=== PATIENT | female | born 1960 | race Caucasian/White ===

== ENCOUNTER 2017-01-23 14:02 | Inpatient (IN) ==
[2017-01-23] MEDS ORDERED: DUONEB (A & A) INH ONE (14:06)
[2017-01-23] MEDS ORDERED: SOLU-MEDROL IV ONE (14:07)
--- NOTE | 2017-01-23 14:16 | PROVIDER DOCUMENTATION ---
HPI-Respiratory General <Little Dave Jr - Last Filed: 01/23/17 15:53> - General Source: patient, EMS - History of Present Illness-Resp Quality of Pain: reports: tightness Severity in ED: reports: mild Onset/Duration: reports: just prior to arrival Timing: reports: still present Exposure: reports: unknown cause Cough Quality/Degree: reports: no cough Episode Frequency: occasional episodes Current Respiratory Medication Therapy: Initiated see nurses note Modifying Factors: improves with: nothing Associated Symptoms: reports: shortness of breath Similar Symptoms Previously?: Yes Recently seen or treated by another doctor?: Yes <Lanette Alonzo - Last Filed: 01/23/17 16:33> - General Stated Complaint: sob Time Seen by Provider: 01/23/17 14:05 Allergies/Adverse Reactions: Patient Allergies Allergy/AdvReac Type Severity Reaction Status Date / Time amoxicillin trihydrate * Allergy Severe ANAPHYLAXIS Verified 01/23/17 14:58 [From Augmentin] potassium clavulanate * Allergy Severe ANAPHYLAXIS Verified 01/23/17 14:58 [From Augmentin] Home Medications: Home Medication List Medication Instructions Recorded Confirmed Last Taken Type Furosemide [Lasix] 40 mg PO DAILY 03/18/15 01/22/17 11/27/16 17:00 History Metoprolol Succinate E.r. [Toprol 25 mg PO BID #60 tablet 04/08/15 01/22/17 17:00 Rx Xl] Hydralazine [Apresoline] 50 mg PO TID PRN 04/18/15 01/22/17 11/27/16 17:00 History Metoclopramide HCl [Reglan] 2.5 mg PO AC + HS 04/18/15 01/22/17 11/27/16 17:00 History Amlodipine [Norvasc] 10 mg PO DAILY #0 tablet 02/02/16 01/22/17 11/27/16 17:00 Rx Clonidine [Catapres] 0.1 mg PO TID #0 tablet 02/02/16 01/22/17 11/27/16 17:00 Rx Calcium Carbonate Chew [Tums] 1,000 mg PO PC + HS PRN PRN #0 05/30/16 01/22/17 11/27/16 16:00 Rx tab.chew Folic Acid/B Cplx/C/Selen/Zinc 1 each PO DAILY 07/25/16 01/22/17 11/27/16 17:00 History [Dialyvite 3,000 Tablet] Albuterol 2.5MG/Ipratrop 0.5MG 3 ml INH RTQ4H #0 neb 11/16/16 01/22/17 Unknown Rx [Duoneb (A & A)] Mirtazapine [Remeron] 15 mg PO QHS #0 11/16/16 01/22/17 11/27/16 17:00 Rx Levofloxacin [Levaquin] 250 mg PO EVERY OTHER DAY #5 tablet 01/22/17 Unknown Rx Prednisone 20 mg PO BID #10 tablet 01/22/17 Unknown Rx - History of Present Illness-Resp Nature of Presenting Problem: Pt is 56 y/o F presents to the ED with respiratory distress. EMS states Pt was in respiratory distress on arrival. EMS states Pt was discharged from the hospital yesterday. Pt states she is a smoker and she wears 3L of oxygen at home at all times. (Lanette Alonzo) Review of Systems - Adult - REVIEW OF SYSTEMS - ADULT Constitutional: denies: chills, fever Eyes: denies: blurred vision, double vision Ears, Nose, Mouth & Throat: denies: ear pain, nose pain, throat pain Cardiovascular: denies: chest pain, heart murmur, irregular heart rate Respiratory: reports: shortness of breath. denies: cough, wheezing Gastrointestinal: denies: abdominal pain, diarrhea, nausea, vomiting Genitourinary: denies: dysuria, hematuria Musculoskeletal: denies: bone pain, joint pain, neck pain Integumentary: denies: hives, itching Neurological: denies: dizziness/vertigo, headache/migraines Psychiatric: reports: no symptoms reported Endocrine: reports: no symptoms reported Hematologic/Lymphatic: reports: no symptoms reported Allergic/Immunologic: reports: no symptoms reported All Other Systems: Reviewed and Negative <Lanette Alonzo - Last Filed: 01/23/17 16:33> Past History - Adult - PAST MEDICAL HISTORY-ADULT Review of Records: reports: Nursing Assessment Review, Medications Reviewed, Social history reviewed & non-contributory. Major Childhood Illnesses: reports: denies history Cardiovascular: reports: CHF, HTN Respiratory: reports: COPD Gastrointestinal: reports: other (gastroparesis) Obstetrical/Gynecological: reports: denies history Genitourinary: reports: dialysis, ESRD, kidney disease Musculoskeletal: reports: denies history Neurological: reports: denies history Psychiatric: reports: anxiety Endocrine/Immune: reports: denies history Other Conditions: reports: denies history - PRIOR SURGERIES/PROCEDURES Surgical/Procedure History: reports: cholecystectomy, indwelling device, other ( J tube placement, fistula to the left arm/dvt) - PRIOR HOSPITALIZATIONS Prior Hospitalizations: reports: for similar symptoms - IMMUNIZATION STATUS Childhood Immunizations: See Nurse Assessment Flu Vaccine: See Nurse Assessment - FAMILY HISTORY Family History: reviewed, not pertinent - SOCIAL HISTORY Smoking: cigarettes, less than 1 pack/day Provider spent 3-5 mins advising pt. on dangers of tobacco.: Discussed manners to quit use, and f/u contacts for add'l counseling. Substance Use: denies Living Situation: family <Lanette Alonzo - Last Filed: 01/23/17 16:33> Physical Exam-General - CONSTITUTIONAL General Appearance: alert, severe distress, thin. negative: appears well (ill in appearance) - EYES Eyes: PERRL/EOMI, pink conjunctivae. negative: sclera injected, scleral icterus - HEAD, EARS, NOSE, MOUTH & THROAT HENMT: normocephalic/atraumatic, other (dry mucous membranes and poor dentition) - NECK Neck: non-tender, supple. negative: tender lateral - RESPIRATORY Respiratory: chest non-tender, decreased breath sounds, accessory muscle use, wheezing, prolonged expiration, increased rate. negative: crackles, rales, rhonchi - CARDIOVASCULAR Cardiovascular: no murmur, tachycardia. negative: irregularly irregular - CHEST (BREASTS) Chest/Breast: no tenderness - GASTROINTESTINAL (ABDOMEN) Abdominal Exam: normal bowel sounds, soft. negative: distended, guarding, rigid , rebound, tenderness - GENITOURINARY Female Genitalia/Pelvic Exam: deferred Rectal Exam: deferred - LYMPHATIC Lymphatic: no adenopathy - MUSCULOSKELETAL Back Exam: normal inspection, no vertebral tenderness. negative: muscle spasm Extremity: negative: deformity, erythema - SKIN Integumentary: negative: swelling, tenderness - NEUROLOGIC Neurologic: grossly normal. negative: facial droop, focal weakness, motor weakness, sensory deficit - PSYCHIATRIC Psych/Mental Status: anxious, disheveled <Lnaette Alonzo - Last Filed: 01/23/17 16:33> Progress - CONSULTS/PCP/HOSPITALIST Notification #1 *Consult/PCP/Hospitalist*: Dr. Humphrey Time Discussed: 15:53 Consult Disposition: Admit (will see lilly. Start antibiotics) <Little Dave Jr - Last Filed: 01/23/17 15:53> - EKG 1 Time of EKG reading by physician:: 14:13 EKG Read and Signed by:: Little Dave Jr EKG Interpretation (*Must complete 3 of following elements*): Abnormal (ST & T wave abnormality, consider lateral ischemia) Rate: 131 Rhythm: sinus tachycardia Comments: voltage criteria for left ventricular hypertrophy - XRAY 1 XRAY: Bilateral XRAY Study: Chest Impression: Abnormal XRAY Interpretation: presistent bilateral infiltrates with no interval improvement <Lanette Alonzo - Last Filed: 01/23/17 16:33> - PLAN OF CARE/RESULTS Progress/Plan/Lab Results: Orders Category Date Time Status Cardiac Monitoring DIRECTED Care 01/23/17 14:06 Active Saline Loc NOW Care 01/23/17 14:06 Active CHEST-PORTABLE [RAD] Stat Exams 01/23/17 14:06 Ordered CBC WITH ELECTRONIC DIFF [HEME] Stat Lab 01/23/17 14:06 Uncollected CK PROFILE [SP CHEM] Stat Lab 01/23/17 14:06 Uncollected COMPREHENSIVE METABOLIC PANEL [CHEM] Stat Lab 01/23/17 14:06 Uncollected MAGNESIUM [CHEM] Stat Lab 01/23/17 14:06 Uncollected PRO B-NATRIURETIC PEPTIDE Stat Lab 01/23/17 14:06 Uncollected PROTIME WITH INR [COAG] Stat Lab 01/23/17 14:06 Uncollected PTT [COAG] Stat Lab 01/23/17 14:06 Uncollected TROPONIN T Stat Lab 01/23/17 14:06 Uncollected Albuterol 2.5MG/Ipratrop 0.5MG [Duoneb (A & A)] Med 01/23/17 14:06 Discontinued 3 ml INH NOW ONE Methylprednisolone Sod Succ [Solu-Medrol] Med 01/23/17 14:07 Discontinued 125 mg IV NOW ONE Aerosol Treatments Routine Oth 01/23/17 14:07 Active Aerosol Treatments Stat Oth 01/23/17 14:07 Active EKG [EKG] Stat Ther 01/23/17 14:06 Ordered Vital Signs - 24 hr 01/23/17 14:22 Pulse Rate 128 H Respiratory 37 H Rate Blood Pressure 174/90 O2 Sat by Pulse 90 L Oximetry Laboratory Tests 01/23/17 01/23/17 01/23/17 14:12 14:12 14:12 WBC 11.10 H RBC 3.41 L Hgb 10.7 L Hct 34.0 L MCV 99.7 H MCH 31.4 H MCHC 31.5 L RDW Std Deviation 14.6 H Plt Count 140 MPV 10.6 H Immature Gran % (Auto) 0.2 Neut % (Auto) 91.8 H Lymph % (Auto) 4.1 L Woodruff % (Auto) 3.7 Eos % (Auto) 0.0 Baso % (Auto) 0.2 Immature Gran # (Auto) 0.02 Neut # (Auto) 10.20 H Lymph # (Auto) 0.45 L Woodruff # (Auto) 0.41 Eos # (Auto) 0.00 Baso # (Auto) 0.02 PT 10.7 INR 1.01 PTT (Actin FS) 32.1 Sodium 136 Potassium 3.7 Chloride 91 L Carbon Dioxide 26 Anion Gap 19 BUN 30 H D Creatinine 5.2 H Estimated GFR/1.73 m2 9 BUN/Creatinine Ratio 6 Glucose 99 Calculated Osmolality 278 Calcium 9.2 Magnesium 2.0 Total Bilirubin 0.35 AST 38 H ALT 13 Alkaline Phosphatase 67 Creatine Kinase 81 Troponin T Total Protein 6.2 L Albumin 3.3 L Globulin 2.9 Albumin/Globulin Ratio 1.1 01/23/17 14:12 WBC RBC Hgb Hct MCV MCH MCHC RDW Std Deviation Plt Count MPV Immature Gran % (Auto) Neut % (Auto) Lymph % (Auto) Woodruff % (Auto) Eos % (Auto) Baso % (Auto) Immature Gran # (Auto) Neut # (Auto) Lymph # (Auto) Woodruff # (Auto) Eos # (Auto) Baso # (Auto) PT INR PTT (Actin FS) Sodium Potassium Chloride Carbon Dioxide Anion Gap BUN Creatinine Estimated GFR/1.73 m2 BUN/Creatinine Ratio Glucose Calculated Osmolality Calcium Magnesium Total Bilirubin AST ALT Alkaline Phosphatase Creatine Kinase Troponin T 0.205 H Total Protein Albumin Globulin Albumin/Globulin Ratio (Lanette Alonzo) Departure - Departure Time of Disposition Order: 15:54 Certified Medical Emergency: Emergent <Little Dave Jr - Last Filed: 01/23/17 15:53> <Lanette Alonzo - Last Filed: 01/23/17 16:33> - Departure DIAGNOSIS: Community acquired bacterial pneumonia, COPD exacerbation, Tobacco abuse Chronic renal failure Qualifiers: Chronic kidney disease stage: stage 5 Qualified Code(s): N18.5 - Chronic kidney disease, stage 5 Sepsis Qualifiers: Sepsis type: sepsis due to unspecified organism Qualified Code(s): A41.9 - Sepsis, unspecified organism Disposition: ADMITTED INPATIENT 09 Condition: Fair Referrals: Ammon Guevara MD [Primary Care Provider] - Attestation - Scribe Verification/Attestation Scribe:: Lanette Alonzo Acting as Scribe for:: Little Dave Jr Scribe documention review:: This chart was documented by a scribe and accurately reflects the service the provider performed and the decisions made by the provider. <Lanette Alonzo - Last Filed: 01/23/17 16:33> Physician Attestation
[2017-01-23 14:45] LABS: ALLEN TEST YES; BE 5.3 mmoll (-3.0-3.0); BLOOD TYPE ARTERIAL; DRAW SITE R RADIAL; METHB 1.4 % (0.0-1.5); O2(CT) 13.1 mL/dL (15.0-23.0); PCO2(98.6) 38 mmHg (35-45); PO2(98.6) 50 mmHg (60-100); SAMPLE BLOOD; SAO2 87.4 % (95.0-100.0); THB 11.1 g/dL (11.5-17.4); pH(98.6) 7.49 (7.35-7.45)
--- NOTE | 2017-01-23 14:46 | Diag Imaging Result Document ---
PROCEDURE NAME: CHEST-PORTABLE - 01/23/2017 PORTABLE AP CHEST: COMPARISON: Compared to 01/22/2017. FINDINGS: The lungs are well expanded. The heart is not enlarged. Mild increased interstitial markings in the mid and lower right lung and the mid left lung. Likely atelectasis in the right costophrenic angle. No consolidation. IMPRESSION: Persistent bilateral infiltrates with no interval improvement. [facility]
[2017-01-23] MEDS ORDERED: LEVAQUIN 750 MG/D5W 150 ML IV ONE (14:52)
[2017-01-23 15:04] LABS: BASO% 0.2 % (0.0-0.8); HEMOGLOBIN 10.7 g/dL (12.0-16.0); IMM GRAN# 0.02 X1000 (0.0-0.04); IMM GRAN% 0.2 % (0.0-0.5); LYMPH# 0.45 X1000 (1.2-3.4); LYMPH% 4.1 % (20.5-51.1); MANUAL DIFF NEEDED? NO; MCH 31.4 PG (27-31); MCHC 31.5 g/dL (33-37); MCV 99.7 FL (81-99); MONO# 0.41 X1000 (0.11-0.59); MONO% 3.7 % (1.7-9.3); MPV 10.6 FL (7.4-10.4); NEUT% 91.8 % (42.2-75.2); PLT 140 X1000 (130-400); RBC 3.41 XMIL (4.2-5.4)
[2017-01-23 15:21] LABS: INR 1.01; PROTIME 10.7 Seconds (9.2-11.7); PTT 32.1 Seconds (22.0-36.0)
[2017-01-23 15:36] LABS: ALBUMIN 3.3 g/dL (3.5-5.0); CALCIUM 9.2 mg/dL (8.8-10.2); POTASSIUM 3.7 mmol/L (3.5-5.1); TOTAL BILIRUBIN 0.35 mg/dL (0.20-1.00); TOTAL PROTEIN 6.2 g/dL (6.3-8.3)
[2017-01-23] MEDS ORDERED: MORPHINE IV ONE (16:13)
[2017-01-23] MEDS ORDERED: PHENERGAN IV ONE (16:15)
[2017-01-23] MEDS ORDERED: SODIUM CHLORIDE 0.9% INJ ONE (16:15)
[2017-01-23 16:25] LABS: MODALITY BI PAP
[2017-01-23] MEDS ORDERED: DUONEB (A & A) INH PRN (16:25)
[2017-01-23] MEDS ORDERED: NS 1,000 ML IV SCH (16:30)
[2017-01-23] MEDS ORDERED: APRESOLINE PO PRN (18:42)
[2017-01-23] MEDS: SOLU-MEDROL IV SCH (18:52)
[2017-01-23] MEDS: ROCEPHIN 1 GM/NS 50 ML IV SCH (18:52)
--- NOTE | 2017-01-23 19:25 | HISTORY AND PHYSICAL ---
HISTORY OF PRESENT ILLNESS: Ms. Hobson is a 56-year-old white female a patient with COPD who came to the emergency room yesterday and was found to have pneumonia. It was decided that she would be treated as an outpatient. She was sent home with antibiotics, however, she got worse and came back. She was admitted today as things were getting worse. She has bilateral pneumonia. She is a patient of Dr. Guevara. She has COPD for several years. She used to smoke heavy, however, she has slowed down to very few cigarettes per day now. Besides COPD she does have significant hypertension. PAST MEDICAL HISTORY: Cholecystectomy. She has an arteriovenous shunt in the left upper arm for dialysis for her end-stage renal disease. MEDICATIONS: DuoNebs at home, amlodipine 10 mg daily, calcium carbonate, clonidine, folic acid, furosemide, hydralazine 50 mg 3 times a day, levofloxacin was prescribed yesterday, metoclopramide 2.5 mg t.i.d. before meals and at bedtime, metoprolol, mirtazapine and prednisone. REVIEW OF SYSTEMS: Other than shortness of breath and cough with expectoration it is noncontributory. PHYSICAL EXAMINATION: VITAL SIGNS: Temperature normal, pulse 107 per minute, respiratory rate 17 per minute, blood pressure 133/77. She weighs 90 pounds. HEENT: Head normocephalic. PERRLA. Fundus examination could not be done. NECK: Supple. JVP normal. ENT examination unremarkable. There is no evidence of lymphadenopathy or thyroid enlargement. EXTREMITIES: No pedal edema, calf tenderness, anemia, cyanosis or clubbing. She has a shunt in the left upper arm which sounds like it is patent. BREAST EXAMINATION: Normal. CHEST: Normal on inspection. LUNGS: Reveal bilateral basilar rales with expiratory wheezing. PMI in the normal position. HEART: Sounds normal. No murmur, gallop or rub noted. ABDOMEN: Nondistended. Reveals scars from previous surgery. No guarding, rigidity, free fluid, masses, or organomegaly. Bowel sounds normal. RECTAL EXAMINATION: Deferred. CENTRAL NERVOUS SYSTEM: Higher functions normal. Cranial nerves normal. Motor and sensory system examination unremarkable. Deep tendon reflexes normal. Plantars downgoing. SKULL AND SPINE EXAMINATION: Normal for age. No cerebellar signs or signs of meningeal irritation. LOCOMOTOR EXAMINATION: Unremarkable. SKIN EXAMINATION: Unremarkable. LABORATORY: CBC shows leukocytosis with white count of 11.10. ABGs are satisfactory except for hypoxia, PO2 was only 50% with 100% FiO2. We will repeat the blood gases tomorrow morning. BUN was 30, creatinine was 5.2, proBNP was more than 35,000. Troponin was somewhat high at 0.205. CLINICAL IMPRESSION: Chronic obstructive pulmonary disease with bilateral pneumonia as noted on the chest x-ray. PLAN: 1. Continue antibiotics and steroids. 2. Nephrology consultation. 3. Obtain echocardiogram.
[2017-01-23] MEDS: DUONEB (A & A) INH SCH ×2 (19:40→23:34)
--- NOTE | 2017-01-23 20:15 | CONSULTATION ---
DATE OF CONSULTATION: 01/23/2017 REASON FOR CONSULTATION: Help with management. HISTORY OF PRESENT ILLNESS: Ms. Hobson is a 56-year-old white female with COPD and end-stage kidney disease. She requires home oxygen for management of her COPD and is hospitalized rather frequently for this diagnosis. She presented to dialysis yesterday with increasing shortness of breath, coughing, sputum, decreased O2 saturation. She was encouraged to come to the emergency room which she did, but she would not accept admission after her evaluation and she subsequently went home. She returned today with worsening symptoms. Her O2 saturation initially was very low and she had obvious respiratory distress. She was treated with BiPAP initially and then transitioned back to a closed face mask. Again, she uses oxygen and home, 3 L at all time. Currently her shortness of breath is moderately improved. She is still coughing and still wheezing. PAST MEDICAL HISTORY: 1. End-stage kidney disease. 2. Hypertension. 3. COPD, O2 dependent. HOME MEDICATIONS: Prednisone, levofloxacin, mirtazapine, albuterol, ipratropium, multivitamin, Tums, clonidine, amlodipine, metoclopramide, hydralazine, metoprolol, furosemide. ALLERGIES: Amoxicillin, Augmentin. SOCIAL HISTORY: She is and lives with her . She continues to smoke. REVIEW OF SYSTEMS: Otherwise noncontributory. PHYSICAL EXAMINATION: Vital Signs: Blood pressure 133/77, heart rate 107, respirations 17, afebrile. General: She is a frail, petite woman sitting up in bed with increased work of breathing on a closed face mask. Skin: Warm and dry. Conjunctivae are pink. Pupils are equal. Oropharynx is dry. Neck: Neck veins are distended. Heart: Regular and tachycardic. Lungs: Have equal breath sounds with decreased air movement and wheezes bilaterally, a few crackles. Abdomen: Soft, nontender. Bowel sounds are present. Extremities: Have trace edema. No clubbing or cyanosis. Neurologic: Grossly nonfocal. LABORATORY DATA: Sodium 136, potassium 3.7, chloride 91, bicarbonate 26, BUN 30, creatinine 5.2, hemoglobin 10.7. IMPRESSION: 1. Chronic obstructive pulmonary disease exacerbation with possible pneumonia. She is being treated with empiric therapy for pneumonia with levofloxacin, ceftriaxone. These drugs are dosed appropriately for her renal function. She is also receiving inhaled ipratropium and albuterol as well as intravenous methylprednisolone and supplemental oxygen. 2. End-stage kidney disease. She does not appear volume overloaded. I will stop her IV fluids. She will have her routine hemodialysis in the morning. 3. Electrolytes are in target. 4. Acid-base is in target. 5. Anemia in target.
[2017-01-23] MEDS: REMERON PO SCH (20:41)
[2017-01-23] MEDS: REGLAN PO SCH (20:41)
[2017-01-23] MEDS: TOPROL XL PO SCH (20:41)
[2017-01-23] MEDS ORDERED: DUONEB (A & A) INH SCH (22:00)
[2017-01-24] MEDS ORDERED: LASIX IV ONE (00:37)
[2017-01-24] MEDS: SOLU-MEDROL IV SCH ×3 (03:13→18:02)
[2017-01-24] MEDS: DUONEB (A & A) INH SCH ×6 (03:26→23:01)
--- NOTE | 2017-01-24 05:45 | EKG Report ---
Test Performed on : 01/23/2017 2:13:46 PM Test Reason : Chest Pain Blood Pressure : / mmHG Vent. Rate : 131 BPM Atrial Rate : 131 BPM P-R Int : 130 ms QRS Dur : 080 ms QT Int : 324 ms P-R-T Axes : 048 026 098 degrees QTc Int : 478 ms Sinus tachycardia. Voltage criteria for left ventricular hypertrophy ST & T wave abnormality, consider lateral ischemia Abnormal ECG When compared with ECG of 12-NOV-2016 14:03, No significant change was found Confirmed by Musa Tinsley MD ([id number]) on 01/25/2017 8:46:22 PM
--- NOTE | 2017-01-24 06:05 | EKG Report ---
Test Performed on : 01/24/2017 00:12:16 AM Test Reason : No order in [facility] Blood Pressure : / mmHG Vent. Rate : 097 BPM Atrial Rate : 097 BPM P-R Int : 132 ms QRS Dur : 082 ms QT Int : 404 ms P-R-T Axes : 049 037 112 degrees QTc Int : 513 ms Normal sinus rhythm. Possible Left atrial enlargement T wave abnormality, consider lateral ischemia Nonspecific T wave abnormality Anterior leads Prolonged QT Abnormal ECG When compared with ECG of 23-JAN-2017 14:13, (Unconfirmed) T wave inversion now evident in Anterior leads Confirmed by Musa Tinsley MD ([id number]) on 01/25/2017 8:49:21 PM
[2017-01-24 06:06] LABS: ALLEN TEST YES; BE 3.7 mmoll (-3.0-3.0); BLOOD TYPE ARTERIAL; DRAW SITE R RADIAL; METHB 1.4 % (0.0-1.5); O2(CT) 13.7 mL/dL (15.0-23.0); PCO2(98.6) 47 mmHg (35-45); PO2(98.6) 158 mmHg (60-100); SAMPLE BLOOD; SAO2 99.2 % (95.0-100.0); THB 9.8 g/dL (11.5-17.4)
[2017-01-24 06:07] LABS: MODALITY NRB
[2017-01-24] MEDS: LOVENOX SUBQ SCH (06:19)
[2017-01-24] MEDS: REGLAN PO SCH ×5 (06:19→21:30)
[2017-01-24] MEDS ORDERED: NS 2,000 ML MISC PRN (06:30)
[2017-01-24] MEDS ORDERED: HEPARIN IV PRN (06:30)
[2017-01-24] MEDS ORDERED: TIGHT: 0.2 ML/HR MISC PRN (06:30)
--- NOTE | 2017-01-24 09:57 | PROGRESS NOTE ---
DATE: 01/24/2017 SUBJECTIVE: Ms. Hobson was admitted last night with bilateral pneumonia and severe chronic obstructive pulmonary disease. She has endstage renal disease. Dr. Mustafa saw her last night. Her ABGs showed significant improvement, especially in pO2. We will try to cut down on her oxygen today overall condition is stable. We will continue the current management on her. -2
[2017-01-24] MEDS ORDERED: HEPARIN ONE (10:55)
[2017-01-24] MEDS ORDERED: NS 2,000 ML ONE (10:55)
--- NOTE | 2017-01-24 10:58 | PROGRESS NOTE ---
DATE: 01/24/2017 SUBJECTIVE: She is feeling better today. She is able lay back in the bed and rest. She is still coughing, but this is improved. Less sputum, less shortness of breath. OBJECTIVE: Vital Signs: Blood pressure 153/73, heart rate 97, respiration 18, afebrile. General Appearance: Thin, chronically ill woman, in no acute distress. Skin: Warm and dry. Conjunctivae are pink. Pupils are equal. Neck: Neck veins are not distended. Oropharynx is not examined. Heart: Regular without gallops or murmurs. Lungs: Have equal breath sounds with few wheezes. No crackles. Abdomen: Soft, nontender. Bowel sounds are present. Extremities: Have no edema, clubbing, or cyanosis. LABORATORY DATA: None today. IMPRESSION: 1. End-stage kidney disease: She will have her routine hemodialysis today. We will test her dry weight to eliminate volume is potential part of her clinical syndrome. 2. Electrolytes/acid base in target. 3. Anemia. In target.
--- NOTE | 2017-01-24 13:39 | ECHO REPORT ---
ORDER DATE: 01/23/2017 PROCEDURE: Echocardiogram. ECHOCARDIOGRAPHIC MEASUREMENTS: 1. Interventricular septum 1.5. 2. Left ventricular posterior wall 1.4. 3. Diastolic diameter 3.4. 4. Left atrium 3.5. 5. Aorta 2.8. INTERPRETATION: 1. Technically suboptimal study. Very poor acoustic window. 2. Pulmonic valve not well visualized. 3. Mitral valve was normal. 4. Tricuspid valve not well visualized. 5. Aortic valve leaflets mildly sclerosed, trileaflet. 6. A poor acoustic window. Left ventricular cavity size appears to be normal with an estimated ejection fraction of 45% to 50%; however, endocardium not well visualized in all views. Would recommend contrast echo or MUGA scan to accurately assess systolic function. 7. Doppler studies revealed peak velocity across the aortic valve 2.1 m/sec. There is left atrial enlargement. 8. There is mild mitral regurgitation. 9. Mild tricuspid regurgitation. Peak velocity across the tricuspid valve was 3.3 m/sec. 10. Pulmonary artery systolic pressure of 54 mmHg. 11. There is no pericardial effusion or obvious intracardiac mass or thrombus seen. 12. Mitral annular calcification was noted.
[2017-01-24] MEDS ORDERED: LEVAQUIN 500 MG/D5W 100 ML IV SCH (15:00)
[2017-01-24] MEDS: CATAPRES PO SCH ×3 (15:28→16:17)
[2017-01-24] MEDS: VITAMIN D PO SCH (15:29)
[2017-01-24] MEDS: TOPROL XL PO SCH ×2 (15:30→21:30)
[2017-01-24] MEDS: NORVASC PO SCH (15:30)
[2017-01-24] MEDS: LASIX IV SCH (15:30)
[2017-01-24] MEDS: LEVAQUIN 500 MG/D5W 100 ML IV SCH (15:31)
[2017-01-24] MEDS: ROCEPHIN 1 GM/NS 50 ML IV SCH (18:01)
[2017-01-24] MEDS: REMERON PO SCH (21:31)
[2017-01-25] MEDS: SOLU-MEDROL IV SCH ×3 (03:09→18:15)
[2017-01-25] MEDS: DUONEB (A & A) INH SCH ×6 (03:45→22:51)
[2017-01-25] MEDS: REGLAN PO SCH ×4 (06:19→20:17)
[2017-01-25] MEDS: LOVENOX SUBQ SCH (06:19)
[2017-01-25] MEDS: TUMS PO PRN ×5 (06:39→22:30)
[2017-01-25] MEDS ORDERED: LEVAQUIN PO SCH (09:00)
[2017-01-25] MEDS: TOPROL XL PO SCH ×2 (09:50→20:17)
[2017-01-25] MEDS: CATAPRES PO SCH ×3 (09:50→17:28)
[2017-01-25] MEDS: LASIX IV SCH (09:50)
[2017-01-25] MEDS: VITAMIN D PO SCH (09:50)
[2017-01-25] MEDS: NORVASC PO SCH (09:51)
--- NOTE | 2017-01-25 11:14 | PROGRESS NOTE ---
DATE: 01/25/2017 SUBJECTIVE: Ms. Hobson is recovering from pneumonia. She had blood cultures positive for Serratia, sensitive to Levaquin which was started yesterday. She is also getting IV Rocephin. She says she is feeling better. Overall condition is unchanged.
--- NOTE | 2017-01-25 11:26 | PROGRESS NOTE ---
DATE: 01/25/2017 SUBJECTIVE: She still has shortness of breath, but she has her oxygen off while eating breakfast. No other new complaints. OBJECTIVE: Vital Signs: Blood pressure 142/82, heart rate 112, respirations 20, afebrile. Intake 800 mL; output 3.1 L. General: On physical exam, frail chronically ill woman in no distress. Skin: Warm and dry. Eyes: Conjunctivae are pink. Neck: Neck veins are not distended. Heart: Regular with a gallop. Lungs: Have equal breath sounds with few wheezes. No crackles. Abdomen: Soft and nontender. Bowel sounds are present. Extremities: Have no edema, clubbing, or cyanosis. LABORATORY DATA: None today. Blood cultures positive with Serratia marcescens, which she is sensitive to cephalosporins and quinolones. IMPRESSION: 1. End-stage kidney disease. She will be due for her next scheduled dialysis treatment tomorrow. 2. Bacteremia with Serratia marcescens. She had a femoral catheter that was removed on Saturday of this week. No other obvious sources of bacteremia. Her organism is sensitive to cephalosporins, which we can continue to dose ceftazidime 2 g every 48 hours at the outpatient clinic when she is otherwise ready for discharge.
[2017-01-25] MEDS: ROCEPHIN 1 GM/NS 50 ML IV SCH (18:15)
[2017-01-25] MEDS: REMERON PO SCH (20:17)
[2017-01-26] MEDS: DUONEB (A & A) INH SCH ×6 (03:23→22:54)
[2017-01-26] MEDS: SOLU-MEDROL IV SCH ×3 (03:55→20:41)
[2017-01-26] MEDS: REGLAN PO SCH ×4 (06:11→20:41)
[2017-01-26] MEDS: LOVENOX SUBQ SCH (06:11)
[2017-01-26] MEDS ORDERED: TIGHT: 0.2 ML/HR MISC PRN (07:29)
[2017-01-26] MEDS ORDERED: NS 2,000 ML MISC PRN (07:29)
[2017-01-26] MEDS ORDERED: HEPARIN IV PRN (07:29)
[2017-01-26 08:49] LABS: HEMATOCRIT 29.7 % (37.0-47.0); HEMOGLOBIN 9.4 g/dL (12.0-16.0); MCHC 31.6 g/dL (33-37); MPV 10.3 FL (7.4-10.4); RBC 3.03 XMIL (4.2-5.4)
[2017-01-26] MEDS: LEVAQUIN 500 MG/D5W 100 ML IV SCH (08:56)
[2017-01-26] MEDS: LASIX IV SCH (08:56)
[2017-01-26] MEDS: TUMS PO PRN ×3 (08:56→17:11)
[2017-01-26 09:22] LABS: ALBUMIN 3.2 g/dL (3.5-5.0); CALCIUM 10.2 mg/dL (8.8-10.2); POTASSIUM 4.2 mmol/L (3.5-5.1)
[2017-01-26] MEDS ORDERED: NS 2,000 ML ONE (09:55)
[2017-01-26] MEDS ORDERED: HEPARIN ONE (09:55)
[2017-01-26] MEDS: CATAPRES PO SCH ×3 (10:49→17:11)
[2017-01-26] MEDS: TOPROL XL PO SCH ×2 (10:49→20:40)
--- NOTE | 2017-01-26 13:29 | PROGRESS NOTE ---
DATE: 01/26/2017 SUBJECTIVE: Ms. Hobson has gone for dialysis today. She is recovering from pneumonia. She has septicemia with positive blood cultures showing Serratia marcescens. She is on IV Levaquin, which should be helping her significantly. OBJECTIVE: Vital Signs: The vital signs are stable. She is afebrile. -57
[2017-01-26] MEDS: NORVASC PO SCH (15:38)
[2017-01-26] MEDS: VITAMIN D PO SCH (15:38)
[2017-01-26] MEDS: REMERON PO SCH (20:40)
[2017-01-26] MEDS: ROCEPHIN 1 GM/NS 50 ML IV SCH (20:40)
[2017-01-27] MEDS: SOLU-MEDROL IV SCH ×3 (03:03→20:37)
[2017-01-27] MEDS: DUONEB (A & A) INH SCH ×6 (03:27→22:44)
[2017-01-27] MEDS: LOVENOX SUBQ SCH (06:04)
[2017-01-27] MEDS: REGLAN PO SCH ×4 (06:04→20:34)
[2017-01-27] MEDS: NORVASC PO SCH (08:26)
[2017-01-27] MEDS: TUMS PO PRN ×2 (08:26→22:01)
[2017-01-27] MEDS: VITAMIN D PO SCH (08:26)
[2017-01-27] MEDS: CATAPRES PO SCH ×3 (08:27→16:26)
[2017-01-27] MEDS: LASIX IV SCH (08:27)
[2017-01-27] MEDS: TOPROL XL PO SCH ×2 (08:27→20:33)
[2017-01-27] MEDS: KLONOPIN PO SCH (18:42)
[2017-01-27] MEDS: REMERON PO SCH (20:33)
[2017-01-27] MEDS: ROCEPHIN 1 GM/NS 50 ML IV SCH (20:37)
[2017-01-28] MEDS: TUMS PO PRN ×2 (01:45→16:19)
--- NOTE | 2017-01-28 03:05 | PROGRESS NOTE ---
DATE: 01/27/2017 Ms. Hobson is doing better. She has positive blood cultures with Serratia and has been on appropriate antibiotics. She is getting IV levofloxacin. She has renal failure and has been getting dialysis. Overall condition is unchanged. We are repeating her chest x-ray tomorrow. We will also check her basic blood work also. -8
[2017-01-28] MEDS: SOLU-MEDROL IV SCH ×3 (03:06→18:43)
[2017-01-28] MEDS: DUONEB (A & A) INH SCH ×5 (03:30→19:33)
--- NOTE | 2017-01-28 05:56 | EKG Report ---
Test Performed on : 01/28/2017 03:32:45 AM Test Reason : Chest Pain Blood Pressure : / mmHG Vent. Rate : 098 BPM Atrial Rate : 098 BPM P-R Int : 124 ms QRS Dur : 084 ms QT Int : 374 ms P-R-T Axes : 038 036 207 degrees QTc Int : 477 ms Normal sinus rhythm. ST & T wave abnormality, consider inferior ischemia Prolonged QT Abnormal ECG When compared with ECG of 24-JAN-2017 00:12, T wave inversion now evident in Inferior leads T wave inversion no longer evident in Anterior leads Confirmed by Musa Tinsley MD ([id number]) on 01/29/2017 9:34:56 PM
[2017-01-28] MEDS: LOVENOX SUBQ SCH (06:01)
[2017-01-28] MEDS: REGLAN PO SCH ×4 (06:01→20:54)
[2017-01-28 07:08] LABS: BASO% 0.2 % (0.0-0.8); EOS# 0.01 X1000 (0.0-0.7); EOS% 0.1 % (0.0-10.0); HEMATOCRIT 25.6 % (37.0-47.0); HEMOGLOBIN 7.9 g/dL (12.0-16.0); IMM GRAN# 0.35 X1000 (0.0-0.04); IMM GRAN% 2.8 % (0.0-0.5); LYMPH# 0.53 X1000 (1.2-3.4); LYMPH% 4.2 % (20.5-51.1); MANUAL DIFF NEEDED? YES; MCH 30.4 PG (27-31); MCHC 30.9 g/dL (33-37); MCV 98.5 FL (81-99); MONO# 0.41 X1000 (0.11-0.59); MONO% 3.3 % (1.7-9.3); MPV 10.1 FL (7.4-10.4); NEUT% 89.4 % (42.2-75.2); PLT 242 X1000 (130-400)
[2017-01-28 07:11] LABS: CALCIUM 9.8 mg/dL (8.8-10.2); POTASSIUM 4.5 mmol/L (3.5-5.1)
--- NOTE | 2017-01-28 07:11 | PROGRESS NOTE ---
DATE: 01/28/2017 SUBJECTIVELY: Ms. Hobson is doing fair. The patient does feel weak. Does have cough, shortness of breath with minimal exertion. She denied any high-grade fever or chills. The patient did have vague chest pain last night. The patient admitted with chest congestion, cough, shortness of breath. Found to have COPD exacerbation and bilateral pneumonia. The patient is on IV Levaquin. Patient found to have blood culture positive. She has known case of end-stage renal disease, on hemodialysis. The patient does have epigastric discomfort and nausea. OBJECTIVE: Vital signs: Noted. Neck: Supple. No JVD. Lungs: Bibasilar crepitations, occasional wheezing. CVS: S1 and S2 heard, 2/6 systolic murmur at the apex. Abdomen: Soft, mild epigastric tenderness. No guarding or rigidity. Extremities: No cyanosis, clubbing. Some disuse atrophy. PAN SHAKER: Alert, awake able to move all 4 limbs. DIAGNOSTIC STUDIES: The patient had echocardiogram done which did reveal mild mitral regurgitation. Mild tricuspid regurgitation. No pericardial effusion. Annular mitral calcification. ASSESSMENT/CONSIDERATION: The patient's problems includes sepsis. Her blood culture grew Serratia, which is sensitive to Levaquin. Her other problems include: 1. Bronchopneumonia. 2. Chronic obstructive pulmonary disease exacerbation. 3. End-stage renal disease. 4. The patient does have chronic abdominal pain. The patient is not sure about her last upper GI endoscope. PLAN: Considering her chronic problem, I am going to consider getting a GI evaluation. Continue rest of the treatment. Overall plan discussed with the patient. She is in agreement.
[2017-01-28] MEDS: TOPROL XL PO SCH ×2 (10:37→20:55)
[2017-01-28] MEDS: CATAPRES PO SCH ×3 (10:37→20:55)
[2017-01-28] MEDS: LASIX IV SCH (10:37)
[2017-01-28] MEDS: VITAMIN D PO SCH (10:37)
[2017-01-28] MEDS: NORVASC PO SCH (10:37)
[2017-01-28] MEDS: KLONOPIN PO SCH (10:37)
[2017-01-28] MEDS: LEVAQUIN 500 MG/D5W 100 ML IV SCH (10:38)
--- NOTE | 2017-01-28 10:47 | Diag Imaging Result Document ---
PROCEDURE NAME: CHEST-2 VIEWS - 01/28/2017 CHEST X-RAY 2 VIEWS, 01/28/2017: COMPARISON: 01/23/2017. FINDINGS: There is improvement in the fine interstitial infiltrates, with more normal appearance of the pulmonary vascularity. No focal consolidation. No pneumothorax or pleural effusion. Heart size remains mildly enlarged. IMPRESSION: Significant improvement from prior.
--- NOTE | 2017-01-28 11:40 | PROGRESS NOTE ---
DATE: 01/28/2017 SUBJECTIVE: Patient currently resting in bed with eyes closed. She is drowsy. Awakes to verbal and tactile stimuli. No complaints this morning. OBJECTIVE: Vital Signs: Temperature 97.4 degrees, pulse 96, respiratory rate 18, blood pressure 147/69, intake 694 mL, output not measured. Physical Examination: General: This is a middle-aged female, resting in bed. She is resting with eyes closed. She is in no acute distress. HEENT: Normocephalic and atraumatic. Oral mucosa dry. Neck: Supple. No JVD. Cardiovascular: Regular rate and rhythm. She has a positive S4. Pulmonary: She has equal excursion. She is clear bilaterally. No increased work of breathing. Abdomen: Soft with positive bowel sounds. : Not inspected. She has minimal void with hemodialysis assist. Extremities: No clubbing, cyanosis, or edema. Integumentary: Skin is warm and dry. No rash or lesion. Lab Data: WBC of 12.5, hemoglobin 7.9. Sodium 134, potassium 4.9, CO2 26, BUN 73, creatinine 5.4, calcium 9.8. She did have an initial blood culture that come back positive for Serratia marcescens susceptible to everything except cefazolin. Her final blood cultures have been reported as negative. ASSESSMENT AND PLAN: 1. End-stage renal disease management. She has a Saturday, , Saturday schedule patient. We will plan to resume her routine dialysis tomorrow. 2. Bacteremia with Serratia marcescens. Her femoral catheter was removed prior to hospitalization. She is on appropriately dosed antibiotics. 3. Bronchopneumonia. Followed by primary. Appropriate treatment. 4. Chronic abdominal pain. The patient will be receiving a gastroenterology consult per primary. Seen, data reviewed, discussed with Alexandria Singh on 01/28/16. I agree with the above assessment and plan of care. rg Dictated by MONICA Walker for Onesimo Mustafa MD [facility]uthie
[2017-01-28] MEDS: ROCEPHIN 1 GM/NS 50 ML IV SCH (20:54)
[2017-01-28] MEDS: REMERON PO SCH (20:54)
--- NOTE | 2017-01-28 21:57 | CONSULTATION ---
DATE OF CONSULTATION: 01/28/2017 HISTORY AND REASON FOR CONSULTATION: I evaluated this patient with long-standing reflux symptoms. HISTORY OF PRESENT ILLNESS: Ms. Hobson is a 56-year-old lady, admitted by Ammon Guevara MD for management of COPD and chronic renal failure. The patient apparently had been to the dialysis unit. At that time, she was found to be quite short of breath. She was sent to the emergency room and evaluated. She was asked to be admitted to the hospital but patient refused and went back home. The next day, the patient came in to the ER again. At that time, she was more short of breath. Therefore, she was admitted and since then, she has been in the hospital. The patient in the meantime complained to Dr. Guevara that she has been having a lot of heartburn with indigestion and burping and belching intermittently with no significant abdominal pain. The patient had this problem for a long time. Therefore, Dr. Guevara asked me to consider her for an EGD while she is in the hospital. PAST MEDICAL HISTORY: 1. Chronic renal failure. 2. Hypertension. 3. Very advanced COPD. 4. Gastroesophageal reflux disease. 5. Chronic anemia. 6. Recurrent pneumonias. 7. She is on dialysis. PAST SURGICAL HISTORY: 1. Cholecystectomy. 2. Shunt placement. SOCIAL HISTORY: Does not abuse alcohol. She still smokes. She is on oxygen therapy. MEDICATIONS: Prednisone, levofloxacin, mirtazapine, albuterol inhaler, ipratropium inhaler, Tums, clonidine, amlodipine, metoclopramide, hydralazine, metoprolol, and furosemide. ALLERGIES: She is allergic to Augmentin and amoxicillin. SOCIAL HISTORY: She is and lives with her . Still smokes. FAMILY HISTORY: There is no history of any GI cancer in the family. REVIEW OF SYSTEMS: Appetite is poor. There is significant difficulty in breathing present. There is still cough, but has great improvement, especially in her coughing and shortness of breath she has improved since admission to the hospital. She is generally tired all the time. No nausea, vomiting. Constant heartburn present with acid regurgitation. There is no difficulty in swallowing. No blood in stool or black stool. PHYSICAL EXAMINATION: General: The patient is alert, oriented x3. She is slightly short of breath. Vital Signs: The temperature is 97.6 degrees, respiratory rate is 16. Pulse rate is 94 per minute, blood pressure is 144/69, O2 saturation is 99%. She has a plethoric face. Skin: Warm and dry. Mucous membranes are moist. Neck: Supple. There is no thyromegaly. Cardiac: Both heart sounds are heard. Rhythm is slightly tachycardic. I could not hear any murmur. Lungs: Showing some hyper-resonance on percussion with a few bilateral rhonchi. Air entry is diminished bilaterally. Abdomen: Slightly protuberant. No masses felt. Soft and nontender. Bowel sounds are heard. Extremities: Free of any edema. LABORATORY DATA: The latest WBC count is 12.53, hemoglobin 7.9, hematocrit 25.6, the platelet count is 242,000. The ProTime is 10.7 with INR of 1.01. Sodium 134, potassium 4.5, chloride is 90, CO2 is 26, creatinine is 5.4, BUN is 73. The glucose is 154, albumin is 3.3, AST is 38, ALT is 13, alkaline phosphatase is 67. IMPRESSION: Longstanding reflux symptoms. RECOMMENDATIONS: Esophagogastroduodenoscopy. I have explained the procedure of esophagogastroduodenoscopy with benefit and risks, in particular, risk of perforation, hemorrhage, and infection. Patient agreed for it. We will proceed with it. I also explained to the patient about monitored anesthesia care. She agreed for it.
[2017-01-28] MEDS ORDERED: KLONOPIN PO ONE (22:09)
[2017-01-28] MEDS: ZOFRAN IV PRN (22:32)
[2017-01-29] MEDS ORDERED: NICODERM PATCH TD ONE (02:47)
[2017-01-29] MEDS: DUONEB (A & A) INH SCH ×6 (03:28→22:50)
[2017-01-29] MEDS: SOLU-MEDROL IV SCH ×2 (03:48→14:11)
[2017-01-29] MEDS: ZOFRAN IV PRN ×2 (04:58→08:37)
[2017-01-29] MEDS: LOVENOX SUBQ SCH (06:20)
[2017-01-29] MEDS: REGLAN PO SCH ×4 (06:23→20:35)
[2017-01-29] MEDS ORDERED: MYLICON DROPS (DOSE) MISC ONE (06:44)
--- NOTE | 2017-01-29 08:02 | PROGRESS NOTE ---
DATE: 01/29/2017 SUBJECTIVE: Ms. Hobson is not feeling well. The patient vomited 3 times last night. It was coffee- ground. Upper abdominal pain. The patient does feel weak. She denied any typical chest pain. Mild shortness of breath. The patient is due for dialysis today. Her chest x-ray done yesterday did show improvement. No dysuria. The patient is not making much urine. The patient is on hemodialysis. Oral intake is fair to poor. OBJECTIVE: Vital signs: Noted. Neck: Supple. No JVD. Lungs: Bibasilar crepitation. Heart: S1 and S2 heard. Abdomen: Soft, globular. Mild epigastric tenderness. No guarding or rigidity. Extremities: No cyanosis, clubbing. No acute DVT. Central Nervous System: Alert, awake. Able to move all 4 limbs. LAB DATA: Done yesterday. Her hemoglobin was 7.9, mild leukocytosis. Platelet count 242,000. Electrolytes: BUN 73, creatinine 5.4, potassium was 4.5. ASSESSMENT: 1. End-stage renal disease. 2. Hypertension. 3. Sepsis. 4. Pneumonia. Chest x-ray showed improvement. 5. Gastroparesis. PLAN: Patient is due for dialysis today. I did a GI consult because of her epigastric pain, nausea, and vomiting. Started the patient on Protonix. Patient is already on Reglan. We will check CBC again today. Will do blood for type and screen. I will also check PT and PTT. I am going to discontinue her Lovenox. We will check appropriate labs. Continue the rest of the treatment. I am also going to check amylase and lipase. Unix Architect and nursing education specialist following the patient with us.
[2017-01-29] MEDS ORDERED: HEPARIN IV PRN (08:09)
[2017-01-29] MEDS ORDERED: TIGHT: 0.2 ML/HR MISC PRN (08:09)
[2017-01-29] MEDS ORDERED: NS 2,000 ML MISC PRN (08:09)
[2017-01-29 08:18] LABS: BASO% 0.4 % (0.0-0.8); HEMATOCRIT 16.5 % (37.0-47.0); HEMOGLOBIN 5.1 g/dL (12.0-16.0); IMM GRAN# 2.37 X1000 (0.0-0.04); IMM GRAN% 7.7 % (0.0-0.5); LYMPH# 1.62 X1000 (1.2-3.4); LYMPH% 5.3 % (20.5-51.1); MANUAL DIFF NEEDED? YES; MCH 30.9 PG (27-31); MCHC 30.9 g/dL (33-37); MONO# 1.46 X1000 (0.11-0.59); MONO% 4.7 % (1.7-9.3); NEUT% 81.9 % (42.2-75.2); PLT 342 X1000 (130-400); RBC 1.65 XMIL (4.2-5.4)
[2017-01-29 08:28] LABS: INR 1.24; PROTIME 13.2 Seconds (9.2-11.7)
[2017-01-29] MEDS: PROTONIX IV SCH (08:37)
[2017-01-29] MEDS ORDERED: DILAUDID ONE (08:45)
[2017-01-29 08:48] LABS: AMYLASE 46 U/L (20-200); LIPASE 23 U/L (13-60)
[2017-01-29] MEDS: TOPROL XL PO SCH ×2 (08:53→20:35)
[2017-01-29] MEDS: CATAPRES PO SCH ×3 (08:53→16:04)
[2017-01-29] MEDS: KLONOPIN PO SCH (08:53)
[2017-01-29] MEDS: VITAMIN D PO SCH (08:53)
[2017-01-29] MEDS: LASIX IV SCH (08:53)
[2017-01-29] MEDS: NORVASC PO SCH (08:53)
[2017-01-29 08:55] LABS: ALLEN TEST NO; BE 0.9 mmoll (-3.0-3.0); BLOOD TYPE ARTERIAL; DRAW SITE R BRACHIAL; METHB 1.3 % (0.0-1.5); O2(CT) 6.6 mL/dL (15.0-23.0); PCO2(98.6) 33 mmHg (35-45); PO2(98.6) 73 mmHg (60-100); SAMPLE BLOOD; SAO2 97.1 % (95.0-100.0); THB 4.8 g/dL (11.5-17.4); pH(98.6) 7.48 (7.35-7.45)
[2017-01-29 08:56] LABS: MODALITY CANNULA
[2017-01-29] MEDS ORDERED: NS 500 ML IV ONE ×2 (09:21→09:33)
[2017-01-29 09:28] LABS: BANDS 8 % (0-1); LYMPHS 6 % (21-51)
--- NOTE | 2017-01-29 10:14 | OPERATIVE NOTE ---
PROCEDURE DATE: 01/29/2017 PROCEDURE: Attempted esophagogastroduodenoscopy. DESCRIPTION OF PROCEDURE: The patient was brought to the endoscopy room. At that time, the patient was complaining of shortness of breath. She was leaning forward in the bed and breathing rapidly. When I asked her about why she was leaning forward, she then told me that she has chest pain. The chest pain has been going for about 3 days and currently she has bad chest pain. She also complained that she is feeling bad shortness of breath. At that point, Dr. Quinones, the anesthesiologist also came with me. We both took a history to see whether she is a suitable candidate for giving deep sedation with propofol and we decided at that point, that she is not a candidate. It is possible that she might stop breathing on us and she will end up on the respirator. I explained this to the patient. The patient has been asking me multiple times and telling me that she would be all right so that I should definitely scope her, but we both decided that she is a high risk for doing any kind of sedation and we canceled the procedure. Afterwards, I called Dr. Guevara, patient's primary care doctor, and discussed the case with him and told him about her chest pain and shortness of breath. Dr. Guevara also agreed that we should not be doing any invasive procedures on her with this degree of shortness of breath. She has advance the COPD and also chronic renal failure on dialysis. Today, she is going for dialysis. Perhaps she is fluid overloaded. It is possible that she may have pericardial effusion or may be pericarditis causing that chest pain. I will order a barium swallow, upper GI series tomorrow. If she has bad reflux or gastroparesis we can at that time, understand that without doing any endoscopy procedures. Dr. Guevara also agreed.
--- NOTE | 2017-01-29 13:39 | EKG Report ---
Test Performed on : 01/29/2017 08:28:30 AM Test Reason : chest pain Blood Pressure : / mmHG Vent. Rate : 096 BPM Atrial Rate : 096 BPM P-R Int : 116 ms QRS Dur : 086 ms QT Int : 372 ms P-R-T Axes : 061 048 158 degrees QTc Int : 469 ms Normal sinus rhythm. Left ventricular hypertrophy with repolarization abnormality ST & T wave abnormality, consider anterolateral ischemia Abnormal ECG When compared with ECG of 28-JAN-2017 03:32, (Unconfirmed) ST now depressed in Anterior leads T wave inversion now evident in Anterolateral leads Confirmed by Musa Tinsley MD ([id number]) on 01/29/2017 9:54:10 PM
[2017-01-29] MEDS ORDERED: MAXIPIME 2 GM/NS 100 ML IV ONE (15:00)
[2017-01-29 15:16] LABS: HEMATOCRIT 32.6 % (37.0-47.0); HEMOGLOBIN 10.9 g/dL (12.0-16.0)
--- NOTE | 2017-01-29 15:23 | Diag Imaging Result Document ---
PROCEDURE NAME: THORAX/ABDOMEN/PELVIS W/O CONT - 01/29/2017 CT THORAX WITHOUT CONTRAST: FINDINGS: No contrast administered per request of the referring provider. A dose reduction protocol was used. Compared with the CT angiogram pulmonary arteries of 2015. There are apparent emphysematous changes. There is generalized mild interstitial marking prominence similar to the previous exam. There is no associated honeycombing identified. There is chronic atelectasis/scarring at the medial right middle lobe and medial left lingula adjacent to the heart borders. There is no other acute consolidation identified. There is a small right pleural effusion. There are nonspecific small mediastinal lymph nodes. IMPRESSION: 1. Emphysematous changes. Generalized interstitial marking prominence similar to previous exam. No associated honeycombing. 2. Chronic atelectasis/scarring at the medial right middle lobe and left lingula. 3. Small amount of focal infiltrate at right apex. There is a small right pleural effusion. CT ABDOMEN AND PELVIS WITHOUT CONTRAST: No contrast no contrast administered per request of the referring provider. No production protocol was used. Compared to 01/31/2016. There are no acute abnormalities of the liver, spleen, adrenal glands, or pancreas identified. The gallbladder is surgically absent. The bilateral kidneys appear mildly small. There are apparent nonobstructing stones at the lower left kidney. There is no hydronephrosis. There are no substantially enlarged lymph nodes identified. There are atherosclerotic calcifications noted. There is no abdominal aortic aneurysm. There is no retroperitoneal hematoma seen. There is no evidence of bowel obstruction. There is no substantial bowel wall thickening identified. There is no free air or abscess identified. There is no free fluid identified. There is no peritoneal hematoma identified. IMPRESSION: 1. Mildly small bilateral kidneys. Nonobstructing stones in left kidney. No hydronephrosis. 2. No bowel obstruction. No abscess. No free air. 3. No free fluid. No hematoma identified. [facility]
[2017-01-29] MEDS: DILAUDID IV PRN ×2 (15:54→22:56)
--- NOTE | 2017-01-29 17:11 | PROGRESS NOTE ---
DATE: 01/29/2017 TIME SEEN: 08:30 a.m. SUBJECTIVE: Patient currently sitting up in bed. Complaining of chest pain. There has been a CAT call made regarding her. EKG was no acute findings. Primary notified. Patient found to have hemoglobin of 5.1. Vital signs were stable. Patient given pain medications according to Primary. OBJECTIVE: Vital signs: As per chart. General: Middle-aged female, sitting up in bed. She is very pale. She is complaining of pain and acts as though she does feels poorly. HEENT: Normocephalic atraumatic. Conjunctivae extremely pale. Oral mucosa dry. Gums are pale. Lips are pale. Neck: Supple. No JVD. Cardiovascular: Regular rate and rhythm. Tachycardic. Pulmonary: Equal excursion. She has some tachypnea. She is clear. Abdomen : Soft, positive bowel sounds. : Not inspected. Extremities: No clubbing, cyanosis or edema. Integumentary: Skin is pale, warm and dry. LABORATORY DATA: WBC of 30.8, hemoglobin 5.1, hematocrit 16.5, and platelet count of 342,000. I have no chemistry panel today. Her last potassium was 4.5 yesterday. ASSESSMENT AND PLAN: 1. Profound anemia in the setting of chest pain. The patient indicated that she had been vomiting coffee-grounds emesis yesterday and last night. She states her stools are very dark brown. She was supposed to go for an upper gastrointestinal this morning, but because of her chest pain and presentation, that was canceled. The patient has been stabilized by the end of the visit. Plan is to take her down to dialysis and transfuse 2 units of blood during dialysis. Then she will be transferred over to the intensive care unit for closer observation. 2. End-stage renal disease management. She has a Saturday, , Saturday schedule. Plan to dialyze today, see above. 3. Bacteremia. Her white count has jumped. It is also noted that she was extremely anemic. We were really unable to pull any fluids at all during dialysis today. Recheck labs in the morning. If she is still this high, we will need to redo her blood cultures and perhaps broaden her antibiotics. 4. Bronchopneumonia followed by primary. 5. Chronic abdominal pain, followed by Gastroenterology. Seen, data reviewed, discussed with Alexandria Singh on 01/29/17. I agree with the above assessment and plan of care. rg Dictated by MONICA Walker for Onesimo Mustafa MD [facility]ITAL[facility]uthie
--- NOTE | 2017-01-29 18:24 | CONSULTATION ---
DATE OF CONSULTATION: 01/29/2017 REQUESTING PHYSICIAN: Ammon Guevara MD REASON FOR CONSULTATION: Pneumonia. HISTORY OF PRESENT ILLNESS: Ms. Hobson is a 66-year-old white female with COPD, ongoing tobacco use, end-stage renal disease on hemodialysis, who failed outpatient treatment for pneumonia and was admitted to the hospital 01/23/2017. Subsequent blood cultures were positive for Serratia marcescens. Chest x-ray revealed bilateral pulmonary infiltrates. Echocardiogram was performed, which revealed LV dysfunction with an ejection fraction of 45-50%, along with mild to moderate pulmonary hypertension. This represented a poor window for evaluation. Patient was evaluated by Dr. Hall yesterday for reflux symptoms. An EGD was planned for this morning, but patient had increased shortness of breath and epigastric/substernal chest pain. Arterial blood gas this morning revealed a lactic acidosis at 4.9 millimoles. Her hemoglobin level had dropped to 5.1. Her EGD was canceled. The patient had episodes of nausea and vomiting in the evening and a CT scan of the chest, abdomen and pelvis was performed. There was no evidence of esophageal perforation, although patient could not tolerate contrast. She had mild infiltrate in the right apex, along with chronic atelectasis in the medial portion of the right middle lobe and lingula. CT scan of the abdomen revealed no acute disease. CT scan of the chest did reveal significant vascular disease involving the aorta, along with the coronary arteries. Clinically, she has improved with 2 units of packed red blood cells. PAST MEDICAL HISTORY: 1. Radiographic coronary artery disease, as per above. Cardiac perfusion scan 05/02/2015 did not reveal evidence of reversible ischemia. 2. Gram-negative pneumonia during this admission with positive blood cultures. 3. End-stage renal disease, on hemodialysis. 4. Oxygen dependent COPD with ongoing tobacco use. 5. Hypertension. 6. Anemia. SOCIAL HISTORY: The patient lives with her . Continued tobacco use. REVIEW OF SYSTEMS: Notable for chest pain earlier today, which has now resolved. The nausea has also resolved. PHYSICAL EXAMINATION: General: Reveals a frail, chronically ill-appearing, white female who appears much older than her stated age of 56. Her BMI is 18. Vital signs: Blood pressure 149/78, heart rate 97, respiratory rate 16, oxygen saturation 100% on 3 L per nasal cannula. HEENT: Pupils are equal and reactive. Oropharynx is clear. Neck: Supple. Chest: Reveals prolonged expiratory phase without significant wheezing. Cardiac: Distant heart sounds. Normal S1, normal S2. Abdomen: Soft without hepatosplenomegaly. Extremities: Without edema. LABORATORIES: CT scan of the chest, abdomen and pelvis as per above. Repeat hemoglobin level 10.9. Troponin level at 9 o'clock this morning was 0.1. It was 0.2 on her initial admission. CPK is negative. Amylase and lipase are negative. IMPRESSION: A 56-year-old with end-stage renal disease, evidence of significant vascular disease, who presented with a gram-negative bacteremia presumptively due to a gram-negative pneumonia. Clinically, her radiograph appears to be improving and she has minor infiltrates currently. She had epigastric pain this morning with a drop in hemoglobin level. It is possible that she is having a gastrointestinal bleed, but there is no evidence of gastrointestinal bleed at this juncture. There is no evidence of alveolar hemorrhage or evidence of esophageal rupture after her episode of vomiting. There is no evidence of significant abdominal blood present. Her chest pain may be gastrointestinal related such as reflux or esophagitis, but with her drop in hemoglobin and known vascular disease, cardiac ischemia will also remain in the differential. Clinically, she appears to be improving. RECOMMENDATIONS: 1. Continue broad-spectrum antibiotics for gram-negative pneumonia. 2. Barium swallow for possible esophagitis per Dr. Hall. 3. Gastric acid suppression. 4. Check creatine phosphokinase and troponin tomorrow morning. 5. Smoking cessation with education about the need for smoking cessation. 6. Continue intensive care monitoring overnight.
--- NOTE | 2017-01-29 18:58 | PROGRESS NOTE ---
DATE: 01/29/2017 SUBJECTIVE: Ms Hobson is doing much better. Her clinical condition deteriorated this morning. Her upper GI endoscopy canceled because of respiratory distress. The patient was complaining of chest pain. I ordered blood work and her hemoglobin was reported to be 5.1. The patient did have coffee-grounds emesis and she was also complaining of melena. The patient had chest pain. We transfused 2 units of packed RBC. The patient was dialyzed. Critical care consult obtained with Dr. Rivas. Posttransfusion hemoglobin and hematocrit 10.9 and hematocrit 32.6. The patient denied any more vomiting. No typical chest pain. I reevaluated the patient in the ICU. She is more comfortable. OBJECTIVE: Vital Signs: Noted. Lungs: Bibasilar few crepitations. CVS: S1 and S2 heard. Abdomen: Soft, globular. Mild epigastric tenderness. No guarding or rigidity. Extremities: No cyanosis, clubbing. No acute DVT. Diffuse atrophy of lower limbs. SOCIAL MEDIA MARKETING MANAGER: Alert, awake, able to move all 4 limbs. PROBLEMS: 1. Include acute blood-loss anemia. Source of bleeding most likely gastrointestinal. 2. End-stage renal disease on hemodialysis. The patient does have anemia of chronic disease. 3. Chest pain. Cardiac isoenzymes negative. Patient had CT scan of the abdomen and pelvis done to look for any retroperitoneal hematoma. It did show changes of COPD. 4. Chronic atelectasis, scarring at the medial right middle lobe. Small amount of focal infiltrate at the right apex. CT of the abdomen and pelvis, small bilateral kidney, nonobstructing stone in the left kidney. No hydronephrosis. No bowel obstruction. No free fluid or hematoma identified. 5. Her other problems include hypertension, gastritis. Appreciate nephrology, GI and Dr. Rivas's help managing patient. I did discuss the patient's critical condition and poor prognosis with her on telephone. We are going to repeat blood work tomorrow.
[2017-01-29] MEDS: REMERON PO SCH (20:35)
[2017-01-30] MEDS: DUONEB (A & A) INH SCH ×6 (02:40→22:51)
[2017-01-30 04:35] LABS: ALLEN TEST YES; BE 7.2 mmoll (-3.0-3.0); BLOOD TYPE ARTERIAL; DRAW SITE R RADIAL; METHB 1.7 % (0.0-1.5); O2(CT) 13.2 mL/dL (15.0-23.0); PCO2(98.6) 46 mmHg (35-45); PO2(98.6) 111 mmHg (60-100); SAMPLE BLOOD; SAO2 99.8 % (95.0-100.0); THB 9.6 g/dL (11.5-17.4); pH(98.6) 7.45 (7.35-7.45)
[2017-01-30 04:41] LABS: MODALITY CANNULA
[2017-01-30 05:25] LABS: ALBUMIN 2.8 g/dL (3.5-5.0); CALCIUM 8.7 mg/dL (8.8-10.2); MAGNESIUM 1.8 mg/dL (1.5-2.7); POTASSIUM 3.9 mmol/L (3.5-5.1); TOTAL BILIRUBIN 0.22 mg/dL (0.20-1.00); TOTAL PROTEIN 4.8 g/dL (6.3-8.3)
[2017-01-30] MEDS: REGLAN PO SCH ×4 (06:12→21:06)
[2017-01-30] MEDS: SODIUM CHLORIDE 0.9% INJ SCH (06:12)
[2017-01-30] MEDS: SOLU-MEDROL IV SCH (06:12)
[2017-01-30] MEDS: PROTONIX IV SCH (06:12)
--- NOTE | 2017-01-30 06:25 | EKG Report ---
Test Performed on : 01/29/2017 10:49:12 PM Test Reason : No Order in [employer] Blood Pressure : / mmHG Vent. Rate : 088 BPM Atrial Rate : 088 BPM P-R Int : 110 ms QRS Dur : 086 ms QT Int : 378 ms P-R-T Axes : 046 039 130 degrees QTc Int : 457 ms Sinus rhythm. with short GA Left ventricular hypertrophy with repolarization abnormality Nonspecific ST and T wave abnormality Abnormal ECG When compared with ECG of 29-JAN-2017 08:28, Nonspecific T wave abnormality has replaced inverted T waves in Inferior leads Confirmed by Musa Tinsley MD ([id number]) on 01/30/2017 9:47:14 AM
--- NOTE | 2017-01-30 06:53 | PROGRESS NOTE ---
DATE: 01/30/2017 SUBJECTIVE: Ms. Hobson is doing better this morning. Yesterday, patient was complaining of chest pain and significant shortness of breath. The patient was severely anemic. Patient received blood transfusion, 2 units. She underwent dialysis. We transferred patient to ICU. She was complaining of chest pain last night. She did receive Dilaudid and patient is doing better. Her upper GI endoscopy was discontinued because of her unstable medical condition. The patient underwent CT scan of the chest and abdomen to look for retroperitoneal hematoma, and it was negative. The patient does have cough with scanty sputum production. She denied any hematemesis. She did have diarrhea yesterday. PHYSICAL EXAMINATION: Vital Signs: Her vital signs noted. Neck: Supple. No JVD. Lungs: Decreased air entry at both the bases. CVS: S1 and S2 heard. Abdomen: Soft, globular. Bowel sounds present. COSMETOLOGY INSTRUCTOR: Alert, awake. Able to move all 4 limbs. LAB DATA: Done today, results are blood gas with pH 7.45, pCO2 46, PO2 111. Electrolytes: BUN 61, creatinine 4.1. Cardiac isoenzymes: Total CPK 24, creatinine 0.176. Her EKG done last night reviewed. CBC result is pending. PROBLEM LIST: 1. Blood loss anemia, most likely gastrointestinal. The patient is scheduled to have a gastrointestinal series. 2. End-stage renal disease, on hemodialysis. 3. Anemia of chronic disease. 4. Gastritis. 5. Hypertension. 6. Chronic obstructive pulmonary disease. 7. Gastroparesis. PLAN: We will continue current treatment and close observation. Other problems include sepsis. Repeat blood culture was negative.
--- NOTE | 2017-01-30 07:51 | Diag Imaging Result Document ---
PROCEDURE NAME: CHEST-PORTABLE - 01/30/2017 AP PORTABLE CHEST AT 0500 HOURS: FINDINGS: There is some dextrocardia. This was also present on 01/28/2017. There is opacification of the right costophrenic angle which was not the case on the previous study. There is a small pleural effusion demonstrated on the CT scan of 01/29/2017. IMPRESSION: Right pleural effusion.
[2017-01-30 08:05] LABS: BASO% 0.3 % (0.0-0.8); EOS# 0.02 X1000 (0.0-0.7); EOS% 0.2 % (0.0-10.0); HEMATOCRIT 29.9 % (37.0-47.0); HEMOGLOBIN 9.7 g/dL (12.0-16.0); IMM GRAN# 0.78 X1000 (0.0-0.04); IMM GRAN% 6.7 % (0.0-0.5); LYMPH# 0.88 X1000 (1.2-3.4); LYMPH% 7.5 % (20.5-51.1); MANUAL DIFF NEEDED? YES; MCH 29.2 PG (27-31); MCHC 32.4 g/dL (33-37); MCV 90.1 FL (81-99); MONO# 0.61 X1000 (0.11-0.59); MONO% 5.2 % (1.7-9.3); MPV 10.3 FL (7.4-10.4); NEUT% 80.1 % (42.2-75.2); PLT 155 X1000 (130-400); RBC 3.32 XMIL (4.2-5.4)
[2017-01-30 08:26] LABS: BANDS 6 % (0-1); LYMPHS 8 % (21-51); MONO 8 % (1-9); NRBC 2 % (0-0)
[2017-01-30 08:27] LABS: LARGE PLATELETS OCCASIONAL
[2017-01-30] MEDS ORDERED: MYLICON DROPS (DOSE) MISC ONE (09:00)
[2017-01-30] MEDS ORDERED: DIPRIVAN 1% ONE (09:30)
[2017-01-30] MEDS ORDERED: FENTANYL ONE (09:30)
[2017-01-30] MEDS ORDERED: EXTENSION SET 32 IN 4522 ONE (09:38)
[2017-01-30] MEDS ORDERED: PIGGYBACK SET 7393 ONE (09:38)
[2017-01-30] MEDS ORDERED: LABETALOL (DOSE) ONE (09:38)
[2017-01-30] MEDS ORDERED: BREVIBLOC ONE (09:38)
[2017-01-30] MEDS ORDERED: 1/2 NS 500 ML ONE (09:38)
[2017-01-30] MEDS ORDERED: XYLOCAINE-MPF 2% ONE (09:38)
--- NOTE | 2017-01-30 09:58 | PROGRESS NOTE ---
DATE: 01/30/2017 SUBJECTIVE: This patient was scheduled for an endoscopy yesterday but because of shortness of breath and chest pain, the patient was not done. The patient subsequently went to dialysis. During dialysis, the patient continued to have chest pain. The blood work revealed that her hemoglobin had dropped to 5. During and after the dialysis, she was given 2 units of blood transfusions. Her condition improved. Her hemoglobin came up to 10.9 and hematocrit to 32.6. She was moved to the ICU for observation. She is currently in the ICU and the patient's condition is stable. When I talked to her, she is drowsy. However, she does not complain of any chest pain nor is she short of breath. Today's WBC count is 11.66, hemoglobin 9.7, hematocrit 29.9. On questioning the nursing staff on the floor, she had a small amount of coffee-grounds emesis about 2-3 days ago. This history was not available to me when I saw her a couple of days ago. The patient of course was drowsy and she did not give me that history. She only said that she had bad reflux going on. There might be some suggestion of upper GI bleeding. PHYSICAL EXAMINATION: General: Today, the patient is drowsy but wakes up really well. Vital Signs: Temperature is 97.3 degrees, blood pressure is 130/72, pulse rate is 79, respiratory rate is 12. She looks pale. Not short of breath anymore. Does not complain of any chest pain. Cardiac: Both heart sounds are heard. Rhythm is regular. I could not hear any murmur. Lungs: Hyperresonant on percussion with a few basilar crackles. Abdomen: Soft, nontender. No masses felt. Bowel sounds are heard. IMPRESSION: 1. Possible upper gastrointestinal bleed. 2. Improvement in general condition and anemia. 3. Gastroesophageal reflux. RECOMMENDATION: Since the patient's condition is stable, I discussed it with the anesthesiologist, Dr. Quinones. He is coming to evaluate the patient and most likely he will agree for doing the endoscopy today. I have explained the procedure of esophagogastroduodenoscopy with benefit and risks; in particular, risk of perforation, hemorrhage, and infection. Patient agreed and she wanted it to be done today so we will go ahead and do it as soon as possible. I will cancel the upper gastrointestinal series. I also discussed with nephrology. They are also agreeable to get this procedure done. This morning, I already spoke with Dr. Randolph.
[2017-01-30] MEDS ORDERED: DIFLUCAN PO ONE (10:33)
[2017-01-30] MEDS: LEVAQUIN 500 MG/D5W 100 ML IV SCH (10:55)
[2017-01-30] MEDS: CATAPRES PO SCH ×3 (10:57→16:06)
[2017-01-30] MEDS: KLONOPIN PO SCH (10:57)
[2017-01-30] MEDS: NORVASC PO SCH (10:58)
[2017-01-30] MEDS: TOPROL XL PO SCH ×2 (11:00→21:06)
[2017-01-30] MEDS: LASIX IV SCH (11:00)
[2017-01-30] MEDS: VITAMIN D PO SCH (11:01)
[2017-01-30] MEDS: CARAFATE LIQUID PO SCH ×2 (13:05→20:13)
--- NOTE | 2017-01-30 13:24 | PROGRESS NOTE ---
DATE: 01/30/2017 TIME SEEN: 0745 SUBJECTIVE: Patient is sitting up in bed. She has no complaints this morning. She states that she is no longer having chest pain. OBJECTIVE: Vital Signs: Temperature 97.3 degrees, pulse 17, respiratory rate 11, blood pressure 130/72. Intake 1.1 L. Output 700 mL. General: A chronically ill-appearing, middle-aged female sitting up in bed. She is awake and alert. HEENT: Normocephalic, atraumatic. Conjunctivae pale. Oral mucosa dry. Neck: Supple. No JVD. Cardiovascular: Regular rate and rhythm. No murmur or gallop. Pulmonary: Equal excursion. She is clear bilaterally. Abdomen: Soft, with positive bowel sounds. Genitourinary: Not inspected. Extremities: No clubbing, cyanosis, or edema. Integumentary: Skin is pale, warm, and dry. LABORATORY DATA: WBC of 11.7, hemoglobin 9.7. Sodium 135, potassium 3.9, CO2 of 26, BUN 61, creatinine 4.1. ASSESSMENT AND PLAN: 1. End-stage renal disease management. The patient underwent dialysis yesterday without difficulty. We were unable to remove a significant amount of fluid via ultrafiltration, as patient received packed red blood cells during dialysis. Plan to dialyze tomorrow as per her routine. 2. Profound anemia. Patient received 2 units packed red blood cells yesterday. Her hemoglobin has been stable overnight. She has had no more episodes of vomiting or dark stools. She is to go later on this morning for an upper GI series with Gastroenterology. 3. Bacteremia. White count improved after fluid expansion. Continue to monitor. She has been afebrile. Blood cultures thus far have been negative. Data reviewed, discussed with Alexandria Singh on 01/30/17. I agree with the above assessment and plan of care. rg Dictated by MONICA Walker for Onesimo Mustafa MD [facility]
[2017-01-30] MEDS: MAXIPIME 1 GM/NS 50 ML IV SCH (16:07)
[2017-01-30] MEDS: DILAUDID IV PRN ×2 (16:43→21:33)
[2017-01-30] MEDS: REMERON PO SCH (21:05)
--- NOTE | 2017-01-30 21:05 | OPERATIVE NOTE ---
PROCEDURE DATE: 01/30/2017 PROCEDURE: Esophagogastroduodenoscopy. HISTORY AND REASON FOR PROCEDURE: This patient has bad reflux symptoms and also had developed anemia. There was some history where the nurses noticed that she had 1 episode of coffee-ground emesis a few nights ago. She dropped her hematocrit significantly yesterday and had to receive 2 units of blood transfusion yesterday. I wanted to do endoscopy for her, at that time, she was short of breath and had been complaining of chest pain. Therefore, we canceled it, and today she is much better and we are doing it today. MEDICATIONS: Given by Anesthesiologist. Patient was monitored before, during, and after the procedure by them and her condition remains stable. PHOTOGRAPHS: Photos taken from the distal esophagus and the antrum of the stomach. SPECIMEN: None. DESCRIPTION OF PROCEDURE: The patient was kept in the left lateral decubitus position. Premedication given, the Olympus video scope was introduced under vision to the throat, advanced to the esophagus. The esophagus was then insufflated. The upper esophagus appeared to be normal, however, from the mid esophagus down to the gastroesophageal junction there were whitish-yellow exudates present suggestive of a Alejandra esophagitis. There also were multiple ulcerations present, some of them were deep ulcerations. These were linear ulcerations coming from the GE junction to the distal esophagus. Some of them had the appearance of recent bleeding. No active bleeding was present. There was a hiatus hernia measuring about 3 cm, it was a sliding hiatus hernia. The scope was advanced without any difficulty into the stomach. The stomach has a small amount of debris present, which was looking dark in color, suggestive of previous bleeding with altered blood. The antrum had multiple erosions present mostly punctate and some linear. There was no ulceration present. The pylorus admitted the scope without any difficulty. Duodenal bulb had normal mucosa and vascularity. The second part of the duodenum appeared normal. There was no evidence of any fresh blood in the upper GI tract. There might have been minor bleeding from the distal esophagus causing dark debris in the stomach. The anemia in this patient with chronic renal failure might be multifactorial. After removing as much fluid as I could and air from the patient's stomach, scope was removed from the patient. The patient tolerated the procedure well. IMPRESSION: 1. Alejandra esophagitis. 2. Ulcerative esophagitis with recent bleeding. 3. Erosive gastritis. RECOMMENDATIONS: We will start the patient on Carafate slurry 1 g before meals and at bedtime in addition to the Protonix 40 mg IV she is already getting q.24 hours. We will start her on Diflucan 100 mg daily for 2 weeks. I talked to the patient about the findings after she recovered completely from her deep sedation.
[2017-01-30] MEDS: TUMS PO PRN (21:33)
[2017-01-31] MEDS: CARAFATE LIQUID PO SCH ×4 (01:59→20:23)
[2017-01-31] MEDS: DILAUDID IV PRN ×4 (02:36→21:28)
[2017-01-31] MEDS: DUONEB (A & A) INH SCH ×6 (03:33→23:24)
[2017-01-31 05:26] LABS: MANUAL DIFF NEEDED? NO
[2017-01-31 05:30] LABS: BASO% 0.3 % (0.0-0.8); EOS# 0.06 X1000 (0.0-0.7); EOS% 0.4 % (0.0-10.0); HEMATOCRIT 28.1 % (37.0-47.0); HEMOGLOBIN 9.1 g/dL (12.0-16.0); IMM GRAN# 0.74 X1000 (0.0-0.04); LYMPH# 1.05 X1000 (1.2-3.4); LYMPH% 7.1 % (20.5-51.1); MCH 29.5 PG (27-31); MCHC 32.4 g/dL (33-37); MCV 91.2 FL (81-99); MONO# 1.08 X1000 (0.11-0.59); MONO% 7.3 % (1.7-9.3); MPV 10.1 FL (7.4-10.4); NEUT% 79.9 % (42.2-75.2); PLT 140 X1000 (130-400); RBC 3.08 XMIL (4.2-5.4)
[2017-01-31 06:38] LABS: ALBUMIN 2.7 g/dL (3.5-5.0); CALCIUM 8.4 mg/dL (8.8-10.2); POTASSIUM 4.5 mmol/L (3.5-5.1); TOTAL BILIRUBIN 0.18 mg/dL (0.20-1.00); TOTAL PROTEIN 4.4 g/dL (6.3-8.3)
--- NOTE | 2017-01-31 06:49 | PROGRESS NOTE ---
DATE: 01/31/2017 SUBJECTIVE: Ms. Hobson is feeling better. Her shortness of breath is improving. No nausea or vomiting. Tolerating food well. The patient is due for dialysis today. No typical chest pain. The patient does feel weak. Some deconditioning. OBJECTIVE: Vital signs: Reviewed. Neck: Supple. No JVD. Lungs: Bilateral good air entry present. Decreased air entry, right base. CVS: 2/6 systolic murmur at the apex. Abdomen: Soft, globular. Bowel sounds present. Extremities: No cyanosis, clubbing. Diffuse atrophy of lower limb. LENS GENERATOR: Alert, awake, answering questions fairly well. ASSESSMENT: The patient does have multiple complex issues: 1. Gastrointestinal bleed. The patient underwent upper GI endoscopy, results reviewed. Discussed with Dr. Hall. Patient is on proton pump inhibitor and Carafate. She was started on Diflucan for esophageal candidiasis. Will continue. 2. Sepsis on antibiotics. Repeat blood cultures were negative. I am going to stop her Levaquin. 3. End-stage renal disease, on hemodialysis. 4. Hypertension. 5. Situational depression. 6. Pneumonia. I am going to repeat chest x-ray tomorrow. Decrease her pain medicine. 7. Deconditioning. The patient will be benefited from short-term rehab. PLAN: Discussed with patient and she is in agreement. We will do social service consult. Hopefully, the patient will be ready to go home within a day or 2. Encourage patient to quit smoking.
[2017-01-31] MEDS ORDERED: NS 2,000 ML MISC PRN (06:59)
[2017-01-31] MEDS: REGLAN PO SCH ×4 (08:00→20:23)
[2017-01-31] MEDS: PROTONIX IV SCH (08:01)
[2017-01-31] MEDS: SOLU-MEDROL IV SCH (08:01)
[2017-01-31] MEDS: SODIUM CHLORIDE 0.9% INJ SCH (08:01)
[2017-01-31] MEDS: KLONOPIN PO SCH (08:04)
[2017-01-31] MEDS: VITAMIN D PO SCH (08:04)
[2017-01-31] MEDS: CATAPRES PO SCH ×3 (08:04→20:23)
[2017-01-31] MEDS: NORVASC PO SCH (08:05)
[2017-01-31] MEDS: DIFLUCAN PO SCH (08:05)
[2017-01-31] MEDS: LASIX IV SCH (08:05)
[2017-01-31] MEDS: TOPROL XL PO SCH ×2 (08:05→20:22)
--- NOTE | 2017-01-31 09:19 | PROGRESS NOTE ---
DATE: 01/31/2017 HISTORY: This patient has undergone esophagogastroduodenoscopy by me yesterday. She had ulcerative esophagitis and also Alejandra esophagitis. She had erosive gastritis. Small amount of altered blood was found in the stomach. The patient did well after the procedure and she is continuing to do well. She still complaints of some chest pain. She said that there is no significant nausea or vomiting and no abdominal pain. PHYSICAL EXAMINATION: General: The patient is alert, oriented x3. Vital Signs: Temperature is 97.5 degrees, pulse is 88 per minute, respiratory rate is 15, blood pressure is 127/66. Abdominal Examination: Is unremarkable. LABORATORY DATA: The WBC count is 14.74, hemoglobin 9.1, hematocrit 28.1, platelet count is 140,000. Sodium 138, potassium 4.5, chloride 92, CO2 is 24, BUN is 79, creatinine is 6, glucose is 106. Total protein is 4.4, albumin 2.7. IMPRESSION: 1. Ulcerative esophagitis. 2. Alejandra esophagitis. 3. Erosive gastritis. RECOMMENDATION: Continue Protonix IV. When the patient goes home, she should be on Protonix p.o. Continue Carafate slurry 1 g a.c. and at bedtime. When she goes home, she should be on that also. The patient should be given Diflucan 100 mg daily for 2 weeks after discharge. GI will stand by.
[2017-01-31] MEDS ORDERED: NS 2,000 ML ONE (09:36)
[2017-01-31] MEDS ORDERED: HEPARIN ONE (09:36)
[2017-01-31] MEDS: TUMS PO PRN (14:42)
[2017-01-31] MEDS: MAXIPIME 1 GM/NS 50 ML IV SCH (15:06)
--- NOTE | 2017-01-31 15:38 | PROGRESS NOTE ---
DATE: 01/31/2017 SUBJECTIVE: The patient is sitting up in bed. She states that she has had no chest pain today. She states that she has been able to eat. OBJECTIVE: Vital Signs: Temperature 97.5 degrees, pulse 88, respiratory rate 15, blood pressure 127/66. Intake 980 mL, output not measured. PHYSICAL EXAMINATION: General: This is a chronically ill-appearing, middle- aged female, sitting up in bed, in no acute distress. HEENT: Normocephalic, atraumatic. Conjunctivae are pale. Oral mucosa dry. Dentition poor. Neck: Supple. Trachea midline. There is no jugular venous distention. Cardiovascular: Regular rate and rhythm. She has a systolic murmur noted with an S4. Pulmonary: She has equal excursion. She has some rhonchi bilaterally, but no increased work of breathing. Abdomen: Soft, positive bowel sounds. Genitourinary: Not inspected. Extremities: No clubbing, cyanosis, or edema. Integumentary: Skin is warm and dry. There is no rash or lesion. LAB DATA: WBC of 14.7, hemoglobin 9.1, hematocrit 28.1, platelet count 140, 000. Sodium 138, potassium 4.5, CO2 92, BUN 79, creatinine 7.2. Calcium 8.2, albumin 3.1. She underwent an esophagogastroduodenoscopy yesterday that indicated ulcerative and erosive esophagitis with Alejandra and erosive gastritis. ASSESSMENT AND PLAN: 1. End stage renal disease management. We will plan to dialyze her tomorrow. Check labs and adjust bath as appropriate. 2. Blood pressure controlled. 3. Fluid volume. She is not overloaded. 4. Acute anemia. Followed by primary and GI Her hemoglobin has held stable overnight. Seen, data reviewed, discussed with Alexandria Singh on 01/31/17. I agree with the above assessment and plan of care. rg Dictated by MONICA Walker for Onesimo Mustafa MD [facility]
[2017-01-31] MEDS: REMERON PO SCH (20:23)
[2017-02-01] MEDS: CARAFATE LIQUID PO SCH ×4 (01:44→20:43)
[2017-02-01] MEDS: DILAUDID IV PRN ×3 (04:08→20:45)
[2017-02-01] MEDS: DUONEB (A & A) INH SCH ×6 (05:11→23:24)
[2017-02-01 05:32] LABS: MANUAL DIFF NEEDED? NO
[2017-02-01 05:47] LABS: BASO% 0.2 % (0.0-0.8); EOS# 0.09 X1000 (0.0-0.7); EOS% 0.7 % (0.0-10.0); HEMATOCRIT 30.1 % (37.0-47.0); HEMOGLOBIN 9.5 g/dL (12.0-16.0); IMM GRAN# 0.34 X1000 (0.0-0.04); IMM GRAN% 2.6 % (0.0-0.5); LYMPH# 0.84 X1000 (1.2-3.4); LYMPH% 6.5 % (20.5-51.1); MCH 30.3 PG (27-31); MCHC 31.6 g/dL (33-37); MCV 95.9 FL (81-99); MONO# 0.85 X1000 (0.11-0.59); MONO% 6.5 % (1.7-9.3); MPV 10.4 FL (7.4-10.4); NEUT% 83.5 % (42.2-75.2); PLT 127 X1000 (130-400); RBC 3.14 XMIL (4.2-5.4)
[2017-02-01 06:05] LABS: CALCIUM 7.9 mg/dL (8.8-10.2); POTASSIUM 3.8 mmol/L (3.5-5.1); TOTAL BILIRUBIN 0.2 mg/dL (0.20-1.00); TOTAL PROTEIN 4.9 g/dL (6.3-8.3)
[2017-02-01] MEDS: PROTONIX IV SCH (06:22)
[2017-02-01] MEDS: REGLAN PO SCH ×4 (06:23→20:44)
[2017-02-01] MEDS: SOLU-MEDROL IV SCH (06:23)
--- NOTE | 2017-02-01 08:12 | Diag Imaging Result Document ---
PROCEDURE NAME: CHEST-2 VIEWS - 02/01/2017 2 VIEWS OF THE CHEST: FINDINGS: There is blunting of the costophrenic angles, particularly on the left side. This was not the case on 01/30/2017. There is coarse opacity in the lung bases consistent with atelectasis which also appears slightly worse than on the previous study. There is dextrocardia which has been present on previous exams. IMPRESSION: 1. Pleural effusion, particularly on the left. 2. Bibasilar atelectasis.
[2017-02-01] MEDS: LASIX IV SCH (08:51)
[2017-02-01] MEDS: DIFLUCAN PO SCH (08:51)
[2017-02-01] MEDS: KLONOPIN PO SCH (08:52)
[2017-02-01] MEDS: CATAPRES PO SCH ×3 (08:52→20:44)
[2017-02-01] MEDS: VITAMIN D PO SCH (08:52)
[2017-02-01] MEDS: TOPROL XL PO SCH ×2 (08:52→20:44)
[2017-02-01] MEDS: NORVASC PO SCH (08:52)
[2017-02-01] MEDS ORDERED: EPOGEN SUBQ ONE (09:15)
--- NOTE | 2017-02-01 09:46 | PROGRESS NOTE ---
DATE: 02/01/2017 SUBJECTIVE: She is feeling better. Sitting up eating her breakfast. No shortness of breath is improved. OBJECTIVE: Vital Signs: Blood pressure 138/66, heart rate 89, respirations 17, afebrile. General: Chronically ill woman in no distress. Skin: Warm and dry. Conjunctivae are pink. Neck: Neck veins are not distended. Heart: Regular with a murmur. Lungs: Equal breath sounds. No wheezes or crackles. Abdomen: Soft, nontender. Bowel sounds present. Extremities: Have no edema, clubbing, or cyanosis. LABORATORY DATA: Sodium 140, potassium 3.8, chloride 97, bicarbonate 28, BUN 34 creatinine 3.7, hemoglobin 9.5. IMPRESSION: 1. End-stage kidney disease: Her next scheduled dialysis treatment is tomorrow. If she is discharged, we will continue her treatment as an outpatient. 2. Electrolytes/acid base/anemia. All in target. Her hemoglobin has been stable following transfusion. We will dose with erythropoietin.
[2017-02-01] MEDS: MAXIPIME 1 GM/NS 50 ML IV SCH (16:15)
--- NOTE | 2017-02-01 19:42 | PROGRESS NOTE ---
DATE: 02/01/2017 SUBJECTIVE: Ms. Hobson is feeling better. Her breathing is improving. No nausea or vomiting. No hematemesis or melena. No high-grade fever. Mild cough, no expectoration. The patient is resting better. OBJECTIVE: Vital signs: Reviewed. Patient is afebrile. Neck: Supple. No JVD. Lungs: Bibasilar crepitations, occasional wheezing. Cardiovascular: S1 and S2 heard. Abdomen: Soft. No distention. Bowel sounds present. Extremities: No cyanosis or clubbing. Central Nervous System: Alert, awake. Able to move all 4 limbs. CONSIDERATION: 1. Gastrointestinal bleed. 2. Esophageal candidiasis. 3. Chronic obstructive pulmonary disease. 4. Blood-loss anemia. 5. End-stage renal disease. PLAN: Discharge patient home as soon as prison bed available. Overall plan discussed with patient and . They are in agreement.
[2017-02-01] MEDS: REMERON PO SCH (20:43)
[2017-02-02] MEDS: DUONEB (A & A) INH SCH ×7 (03:14→23:13)
[2017-02-02] MEDS: CARAFATE LIQUID PO SCH ×4 (03:52→22:40)
[2017-02-02] MEDS: DILAUDID IV PRN (03:53)
[2017-02-02] MEDS: PROTONIX IV SCH (06:08)
[2017-02-02] MEDS: REGLAN PO SCH ×4 (06:09→22:40)
[2017-02-02] MEDS: SODIUM CHLORIDE 0.9% INJ SCH (06:09)
[2017-02-02] MEDS: VITAMIN D PO SCH (08:07)
[2017-02-02] MEDS: TOPROL XL PO SCH ×2 (08:08→22:40)
[2017-02-02] MEDS: KLONOPIN PO SCH (08:08)
[2017-02-02] MEDS: NORVASC PO SCH (08:08)
[2017-02-02] MEDS: DIFLUCAN PO SCH (08:08)
[2017-02-02] MEDS: CATAPRES PO SCH ×4 (08:08→22:40)
[2017-02-02] MEDS: LASIX IV SCH (08:09)
[2017-02-02] MEDS ORDERED: TIGHT: 0.2 ML/HR MISC PRN (08:24)
[2017-02-02] MEDS ORDERED: NS 2,000 ML MISC PRN (08:24)
[2017-02-02] MEDS ORDERED: HEPARIN IV PRN (08:24)
--- NOTE | 2017-02-02 09:19 | PROGRESS NOTE ---
DATE: 02/02/2017 SUBJECTIVE: Ms. Hobson is doing better. She denied any fever or chills. Oral intake improving. No nausea or vomiting. Denied abdominal pain. The patient is due for dialysis. Her hospital stay is prolonged because of waiting for rehabilitation bed. OBJECTIVE: Vital Signs: Vital signs reviewed. Neck: Neck is supple. No JVD. Lungs: A few basal crepitations. CVS: S1 and S2 heard. Abdomen: Soft. No distention. Bowel sounds present. Extremities: No cyanosis, clubbing. No acute DVT. SENIOR COMPENSATION CONSULTANT: Alert, awake, able to move all 4 limbs. CONSIDERATION: 1. Anemia due to gastrointestinal blood loss and anemia of chronic disease. 2. Gastritis and esophageal candidiasis. 3. Pneumonia and sepsis. 4. End-stage renal disease. Overall patient is doing better. utilities ground worker working on placement. Meanwhile, continue current treatment and close observation. Overall plan discussed with the patient and her , and they are in agreement. I am going to stop her Dilaudid and will try [place].
[2017-02-02] MEDS: NORCO-5 PO PRN ×2 (10:50→22:44)
[2017-02-02] MEDS: ZOFRAN IV PRN (10:50)
[2017-02-02] MEDS ORDERED: NS 2,000 ML ONE (11:32)
--- NOTE | 2017-02-02 14:53 | PROGRESS NOTE ---
DATE: 02/02/2017 SUBJECTIVE: She is sitting up in bed, eating lunch. No complaints of shortness of breath, nausea, vomiting, etc. OBJECTIVE: Vital Signs: Blood pressure 119/59, heart rate 82, respirations 16, afebrile. General: No acute distress. Skin: Warm and dry. Neck: Veins are not visible. Heart: Regular. No gallops. Lungs: Equal breath sounds. No crackles or wheezes. Abdomen: Soft and nontender. Bowel sounds present. Extremities: No edema, clubbing, or cyanosis. LABORATORY DATA: None today. IMPRESSIONS: 1. End-stage kidney disease: She will have her routine hemodialysis today. 2. Electrolytes/acid base/anemia: No new data. 3. Chronic obstructive pulmonary disease, improved. PLAN: For discharge to rehabilitation early next week.
[2017-02-02] MEDS: MAXIPIME 1 GM/NS 50 ML IV SCH (15:59)
[2017-02-02] MEDS: REMERON PO SCH (22:41)
[2017-02-02] MEDS: TUMS PO PRN (23:58)
[2017-02-03] MEDS: CARAFATE LIQUID PO SCH ×4 (04:21→22:23)
[2017-02-03] MEDS: DUONEB (A & A) INH SCH ×6 (04:38→23:55)
[2017-02-03] MEDS ORDERED: MIRALAX PO PRN (05:05)
[2017-02-03] MEDS: PROTONIX IV SCH (06:32)
[2017-02-03] MEDS: REGLAN PO SCH ×4 (06:32→22:24)
[2017-02-03] MEDS: SODIUM CHLORIDE 0.9% INJ SCH (06:32)
[2017-02-03] MEDS: NORCO-5 PO PRN ×2 (06:32→14:59)
--- NOTE | 2017-02-03 08:30 | PROGRESS NOTE ---
DATE: 02/03/2017 SUBJECTIVE: Ms. Hobson is doing better. She had dialysis yesterday. No high-grade fever or chills. Complaining of vague chest pain, aching in nature. At times, more pain with coughing. No nausea or vomiting. No hematemesis or melena. PHYSICAL EXAMINATION: Vital Signs: Her vital signs noted. Neck: Supple. No JVD. Lungs: Bilateral good air entry present. Few basal crepitations. CVS: S1 and S2 heard. Abdomen: Soft. No distention. Bowel sounds present. Extremities: No cyanosis, clubbing. No acute DVT. DIRECTOR OF COMPLIANCE: Alert, awake. Able to move all 4 limbs. CONSIDERATION: 1. Sepsis. The patient is on intravenous antibiotics. 2. Pneumonia. 3. Esophageal candidiasis. Patient is on Diflucan. 4. Gastritis. 5. Anemia, multifactorial. PLAN: Patient is waiting for rehab placement. Her chest pain is atypical. We will continue current treatment. Close observation. Plan is to discharge patient to rehab tomorrow.
[2017-02-03] MEDS: VITAMIN D PO SCH (09:25)
[2017-02-03] MEDS: NORVASC PO SCH (09:27)
[2017-02-03] MEDS: DIFLUCAN PO SCH (09:27)
[2017-02-03] MEDS: KLONOPIN PO SCH (09:27)
[2017-02-03] MEDS: TOPROL XL PO SCH ×2 (09:27→22:24)
[2017-02-03] MEDS: CATAPRES PO SCH ×3 (09:28→22:24)
[2017-02-03] MEDS: LASIX IV SCH (09:28)
[2017-02-03] MEDS: MAXIPIME 1 GM/NS 50 ML IV SCH (15:57)
[2017-02-03] MEDS: TUMS PO PRN (22:23)
[2017-02-03] MEDS: REMERON PO SCH (22:24)
[2017-02-04] MEDS: CARAFATE LIQUID PO SCH ×4 (02:58→20:26)
[2017-02-04] MEDS: DUONEB (A & A) INH SCH ×6 (03:14→22:54)
[2017-02-04] MEDS: REGLAN PO SCH ×4 (06:23→20:26)
[2017-02-04] MEDS: SODIUM CHLORIDE 0.9% INJ SCH (06:24)
[2017-02-04] MEDS: PROTONIX IV SCH (06:24)
--- NOTE | 2017-02-04 06:47 | DISCHARGE SUMMARY ---
ADMISSION DATE: 01/23/2017 DISCHARGE DATE: FINAL DISCHARGE DIAGNOSES: 1. Bronchopneumonia. 2. Sepsis. 3. Acute blood loss anemia. 4. Esophageal candidiasis. 5. Gastritis. 6. End-stage renal disease. 7. Chest pain. 8. Hypertension. 9. Chronic obstructive pulmonary disease. 10. Situational depression. 11. Vitamin D deficiency. 12. Gastroparesis. HOSPITAL COURSE: Ms. Hobson is a 57-year-old, white, female patient admitted with chest congestion, cough, wheezing, shortness of breath, feverish feeling, and not responding to outpatient treatment. The patient was seen in the ER and sent home. The patient was not doing well. She came back. Evaluated by ER physician. Admitted for further care. Chest x-ray did reveal bronchopneumonia. The patient was started on IV antibiotics, pulmonary toilet, bronchodilator care, IV steroid. The patient was doing fair. Hospital course complicated by hematemesis, melena. I evaluated the patient. GI consult obtained. The patient is scheduled to have EGD. Patient was very sick that they EGD was canceled. Her hemoglobin dropped down to 5.2. Patient was very sick. She received 2 units of packed RBC. The patient was stabilized, transferred to ICU. GI consult obtained. After stabilizing her condition, the patient underwent upper GI endoscopy which did reveal esophageal candidiasis and gastritis, ulcerative esophagitis with recent bleeding, and erosive gastritis. The patient was started on Diflucan and Carafate. The patient is doing better. Her bleeding stopped. Hemoglobin and hematocrit are remaining stable. Her discharge was delayed due to waiting for a rehab bed. We continued IV antibiotics for her sepsis. Overall, patient received maximum benefit of hospitalization and I am planning to discharge her home today. PHYSICAL EXAMINATION: Vital Signs: Vital signs noted. Neck: Supple. No JVD. Lungs: Bilateral good air entry present. Few basal crepitations. CVS: A 2/6 systolic murmur at the apex. Abdomen: Soft. No distention. Bowel sounds present. SOCIAL INSURANCE ADVISER: Alert, awake. Able to move all 4 limbs. PLAN: Patient will go to rehab. We will continue IV antibiotics a few more days. Diflucan 3 more days. Antireflux measure. Hemodialysis as per air pollution specialist. Physical therapy. Fall precaution. Encouraged her to quit smoking. Overall discharge plan discussed with the patient and she is in agreement.
[2017-02-04 06:48] LABS: ALBUMIN 2.6 g/dL (3.5-5.0); CALCIUM 8.6 mg/dL (8.8-10.2); MAGNESIUM 1.6 mg/dL (1.5-2.7); POTASSIUM 3.8 mmol/L (3.5-5.1); TOTAL BILIRUBIN 0.18 mg/dL (0.20-1.00); TOTAL PROTEIN 5.1 g/dL (6.3-8.3)
[2017-02-04 07:05] LABS: BASO% 0.4 % (0.0-0.8); EOS# 0.13 X1000 (0.0-0.7); HEMATOCRIT 30.8 % (37.0-47.0); HEMOGLOBIN 9.5 g/dL (12.0-16.0); IMM GRAN# 0.18 X1000 (0.0-0.04); IMM GRAN% 1.4 % (0.0-0.5); LYMPH# 0.86 X1000 (1.2-3.4); LYMPH% 6.7 % (20.5-51.1); MANUAL DIFF NEEDED? NO; MCH 30.6 PG (27-31); MCHC 30.8 g/dL (33-37); MCV 99.4 FL (81-99); MONO# 0.77 X1000 (0.11-0.59); MPV 10.8 FL (7.4-10.4); NEUT% 84.5 % (42.2-75.2); PLT 96 X1000 (130-400)
[2017-02-04] MEDS: KLONOPIN PO SCH (08:00)
[2017-02-04] MEDS: VITAMIN D PO SCH (08:00)
[2017-02-04] MEDS: DIFLUCAN PO SCH (08:00)
[2017-02-04] MEDS: CATAPRES PO SCH ×3 (08:00→21:00)
[2017-02-04] MEDS: TOPROL XL PO SCH ×2 (08:00→21:00)
[2017-02-04] MEDS: NORVASC PO SCH (08:00)
[2017-02-04] MEDS: LASIX IV SCH (08:00)
--- NOTE | 2017-02-04 08:45 | PROGRESS NOTE ---
DATE: 02/04/2017 SUBJECTIVE: Ms. Hobson is currently resting in bed. She is in no acute distress. Skin is warm and dry. She denies any complaints at all. No increased work of breathing or chest pain. OBJECTIVE: Her most recent vital signs are temperature 97.7, blood pressure 118 /57, heart rate 84, respirations 20. She is on 3 L nasal cannula. Last recorded saturation is 98%. She has had 240 in. She has had 0 out. LABS: This a.m., sodium 138, potassium 3.8, chloride 99, CO2 of 21, BUN 41, creatinine 5.4, glucose 77. Her anion gap is 18. Calcium is 8.6, magnesium 1.6, albumin 2.6. White count 12.8, hemoglobin 9.5, hematocrit 30.8 with a platelet count of 36,000. PHYSICAL EXAMINATION: General: This is a 57-year-old white female. She is currently resting in bed. Skin: Warm and dry. HEENT: Normocephalic, atraumatic. Conjunctivae pale. She has MEENAKSHI. Mucous membranes moist. Neck: Supple. Trachea midline. No JVD. Cardiovascular: Regular rate and rhythm. She has a soft murmur. No gallop appreciated. Lungs : Clear to auscultation anteriorly. Equal excursion. She remains on O2. Abdomen: Round , soft, nontender. Positive bowel sounds. Genitourinary: Not inspected. Extremities: Have no edema. No clubbing or cyanosis. Neurological: Alert and oriented x3. ASSESSMENT AND PLAN: 1. End-stage renal disease. Patient is due for her routine dialysis treatment in the a.m. We will plan for dialysis if she is still here, otherwise recommend that she be scheduled for dialysis when going to rehab. 2. Electrolytes, acid-base balance and anemia. These remain stable. 3. Chronic obstructive pulmonary disease. This has improved. I would to thank you for allowing us to follow with this patient. Seen, data reviewed, discussed with Mick Bowman on 02/04/17. I agree with the above assessment and plan of care. rg Dictated by MONICA Pereyra for Onesimo Mustafa MD [facility]
[2017-02-04] MEDS: MAXIPIME 1 GM/NS 50 ML IV SCH (15:44)
[2017-02-04] MEDS: NORCO-5 PO PRN ×2 (16:55→21:46)
[2017-02-04] MEDS: REMERON PO SCH (20:26)
[2017-02-05] MEDS: CARAFATE LIQUID PO SCH ×4 (02:23→13:23)
[2017-02-05] MEDS: DUONEB (A & A) INH SCH ×3 (03:40→11:45)
[2017-02-05] MEDS: NORCO-5 PO PRN (04:00)
[2017-02-05] MEDS: PROTONIX IV SCH ×2 (04:15→07:36)
[2017-02-05] MEDS: SODIUM CHLORIDE 0.9% INJ SCH (04:15)
[2017-02-05] MEDS ORDERED: HEPARIN IV PRN (07:14)
[2017-02-05] MEDS ORDERED: NS 2,000 ML MISC PRN (07:14)
[2017-02-05] MEDS ORDERED: TIGHT: 0.2 ML/HR MISC PRN (07:14)
[2017-02-05] MEDS: REGLAN PO SCH ×3 (07:47→13:24)
--- NOTE | 2017-02-05 08:11 | PROGRESS NOTE ---
DATE: 02/05/2017 SUBJECTIVE: Ms. Hobson is doing better. The patient's discharge was canceled yesterday because of care home bed which is available today and after dialysis I am planning to discharge her to rehab. The patient does have off and on chest pain which is atypical. The patient does have esophagitis and esophageal Alejandra and gastritis. Oral intake is fair. No fever or chills. OBJECTIVE: Vital signs: Noted. Neck: Supple. No JVD. Lungs: Bilateral good air entry present. CVS: S1 and S2 heard. There is a 2/6 systolic murmur at the apex. The patient does have chest wall tenderness. Her pain was reproducible. Abdomen: Soft, scaphoid. Bowel sounds present. LEGAL SPECIALIST: Alert, awake. Able to move all 4 limbs. LAB DATA: Done yesterday noted. Her hemoglobin is stable around 9.5, hematocrit 30.8, platelet count was 96,000. Electrolyte results reviewed. ASSESSMENT AND PLAN: Overall patient is doing better. Plan is to discharge patient to care home today after dialysis. Overall discharge condition is satisfactory.
--- NOTE | 2017-02-05 10:31 | PROGRESS NOTE ---
DATE: 02/05/2017 TIME SEEN: 0800 hours. SUBJECTIVE: Ms. Hobson is currently resting quietly in bed. She is slightly short of breath. She has just gotten back after walking to the bathroom. She is in no acute distress. OBJECTIVE: Her most recent vital signs are temperature 98.3 degrees, blood pressure 103/57, heart rate 89, respirations 16. She is on 3 L nasal cannula. Last recorded saturation of 100%. She has had 540 in. She has had zero out. Her last hemoglobin is 9.5, last potassium 3.8. She has labs ordered for this morning for dialysis; these are currently pending. PHYSICAL EXAMINATION: General: This is a 57-year-old white female. She is resting quietly in bed. She is slightly tachypneic after exertion, otherwise she is in no distress. Skin: Warm and dry. HEENT: Normocephalic, atraumatic. Conjunctivae pale. She has MEENAKSHI. Mucous membranes moist. Neck: Supple. Trachea midline. No JVD. Cardiovascular: Regular rate and rhythm. She has a soft systolic murmur. No gallop appreciated. Lungs: Clear to auscultation anteriorly. Equal excursion. She is slightly tachypneic. She is back on her O2. Abdomen: Round, soft, nontender. Positive bowel sounds. Genitourinary: Not inspected. Patient has minimal void with dialysis assist. Extremities: Have no edema. No clubbing or cyanosis. Neurological: Alert and oriented x3. ASSESSMENT AND PLAN: 1. End-stage renal disease. Patient is due for her routine dialysis treatment this morning. We will collect labs and place her on an appropriate potassium bath, and pull patient to her last dry weight. 2. Electrolytes and acid-base balance. These have been stable. 3. Anemia. This has been low, but stable. 4. Chronic obstructive pulmonary disease with home oxygen. This continues in place. DISPOSITION: Discharge: Patient is due to go to rehabilitation upon discharge. No indications for any intervention today. I would like to thank you for allowing us to follow with this patient. Seen, data reviewed, discussed with Mick Bowman on 02/05/17. I agree with the above assessment and plan of care. rg Dictated by MONICA Pereyra for Onesimo Mustafa MD [facility]
[2017-02-05 10:44] LABS: ALBUMIN 3.7 g/dL (3.5-5.0); CALCIUM 9.1 mg/dL (8.8-10.2); POTASSIUM 4.2 mmol/L (3.5-5.1)
[2017-02-05] MEDS: CATAPRES PO SCH (12:30)
[2017-02-05] MEDS: VITAMIN D PO SCH (13:25)
[2017-02-05] MEDS: TOPROL XL PO SCH (13:27)
[2017-02-05] MEDS: NORVASC PO SCH (13:28)
[2017-02-05] MEDS: LASIX IV SCH (13:28)
[2017-02-05] MEDS: DIFLUCAN PO SCH (13:29)
[2017-02-05 13:39] VITALS: BP 125/62
[2017-02-05] MEDS: KLONOPIN PO SCH (14:13)
== END 2017-02-05 14:10 | DRG 871 ==
LOC: EDBD → ED 14:02 → 3N 16:54 → ICU 01-29 13:48 → 3S 01-31 02:34 → 4N 02-02 10:27
PROVIDERS: ADMIT Internal Medicine; ATTEND Internal Medicine
PROC: 5A1D60Z (ICD-10-PCS; 2017-01-24)
PROC: 30233N1 Transfusion of Nonautologous Red Blood Cells into Peripheral Vein, Percutaneous Approach (ICD-10-PCS; 2017-01-29)
PROC: 0DJ08ZZ Inspection of Upper Intestinal Tract, Via Natural or Artificial Opening Endoscopic (ICD-10-PCS; principal; 2017-01-30 08:49)
DX: A41.9 Sepsis, unspecified organism (principal); J15.6 Pneumonia due to other Gram-negative bacteria; I13.2 Hypertensive heart and chronic kidney disease with heart failure and with stage 5 chronic kidney disease, or end stage renal disease; K22.11 Ulcer of esophagus with bleeding; B37.81 Candidal esophagitis; K29.71 Gastritis, unspecified, with bleeding; N18.6 End stage renal disease; J44.0 Chronic obstructive pulmonary disease with (acute) lower respiratory infection; D62 Acute posthemorrhagic anemia; J44.1 Chronic obstructive pulmonary disease with (acute) exacerbation; J98.11 Atelectasis; Z99.81 Dependence on supplemental oxygen; K31.84 Gastroparesis; F17.210 Nicotine dependence, cigarettes, uncomplicated; Z71.6 Tobacco abuse counseling; Z99.2 Dependence on renal dialysis; Z79.899 Other long term (current) drug therapy; Z79.52 Long term (current) use of systemic steroids; I25.10 Atherosclerotic heart disease of native coronary artery without angina pectoris; F43.21 Adjustment disorder with depressed mood; E55.9 Vitamin D deficiency, unspecified; K21.0 Gastro-esophageal reflux disease with esophagitis; I50.9 Heart failure, unspecified; K44.9 Diaphragmatic hernia without obstruction or gangrene; D63.8 Anemia in other chronic diseases classified elsewhere
CPT/HCPCS: 71010; 71020; 71250; 74176; 80048; 80053; 80069; 82150; 82550; 82805; 82948; 83690; 83735; 83880; 84100; 84484; 85014; 85018; 85025; 85027; 85610; 85730; 86850; 86900; 86901; 86920; 87040; 87077; 87186; 93005; 93010; 93306; 94640; 94760; 94761; 96365; 96366; 96374; 96375; 99406; C9113; J0692; J0696; J0885; J1170; J1644; J1650; J1940; J2270; J2405; J2550; J2920; J2930; J3010; J7030; P9016; 97116-GP; S0164

== ENCOUNTER 2017-02-12 22:49 | Inpatient (IN) ==
[2017-02-12] MEDS ORDERED: DUONEB (A & A) INH ONE (23:28)
[2017-02-12] MEDS ORDERED: SOLU-MEDROL IV ONE (23:33)
--- NOTE | 2017-02-12 23:37 | PROVIDER DOCUMENTATION ---
HPI-Respiratory General <Griselda Gregory - Last Filed: 02/12/17 23:45> <Guille Millan - Last Filed: 02/13/17 01:15> - General Chief Complaint: Shortness of Breath Stated Complaint: sob Time Seen by Provider: 02/12/17 23:22 Allergies/Adverse Reactions: Patient Allergies Allergy/AdvReac Type Severity Reaction Status Date / Time amoxicillin trihydrate * Allergy Severe ANAPHYLAXIS Verified 02/12/17 23:51 [From Augmentin] potassium clavulanate * Allergy Severe ANAPHYLAXIS Verified 02/12/17 23:51 [From Augmentin] Home Medications: Home Medication List Medication Instructions Recorded Confirmed Last Taken Type Furosemide [Lasix] 40 mg PO DAILY 03/18/15 02/13/17 02/10/17 History Metoprolol Succinate E.r. [Toprol 25 mg PO BID #60 tablet 04/08/15 02/13/1711/17 Rx Xl] Hydralazine [Apresoline] 50 mg PO TID PRN 04/18/15 02/13/17 11/27/16 17:00 History Metoclopramide HCl [Reglan] 2.5 mg PO AC + HS 04/18/15 02/13/17 02/10/17 History Amlodipine [Norvasc] 10 mg PO DAILY #0 tablet 02/02/16 02/13/17 02/10/17 Rx Clonidine [Catapres] 0.1 mg PO TID #0 tablet 02/02/16 02/13/17 02/10/17 Rx Calcium Carbonate Chew [Tums] 1,000 mg PO PC + HS PRN PRN #0 05/30/16 02/13/17 11/27/16 16:00 Rx tab.chew Folic Acid/B Cplx/C/Selen/Zinc 1 each PO DAILY 07/25/16 02/13/17 02/10/17 History [Dialyvite 3,000 Tablet] Albuterol 2.5MG/Ipratrop 0.5MG 3 ml INH RTQ4H #0 neb 11/16/16 02/13/17 02/12/17 22:00 Rx [Duoneb (A & A)] Mirtazapine [Remeron] 15 mg PO QHS #0 11/16/16 02/13/1717 Rx Cholecalciferol (Vit D3) [Vitamin 3,000 unit PO DAILY #0 tablet 02/01/1702/10/17 Rx D3] Clonazepam [Klonopin] 0.5 mg PO DAILY PRN #0 tablet 02/01/17 02/13/17 02/10/17 Rx Fluconazole [Diflucan] 100 mg PO DAILY #0 tablet 02/01/17 02/13/17 02/06/17 Rx Pantoprazole [Protonix] 40 mg PO DAILY@0700 #30 tablet 02/01/17 02/13/17 Rx Sucralfate [Carafate Liquid] 1 gm PO Q6H #0 udc 02/01/17 02/13/17 02/10/17 Rx Hydrocodone/Acetaminophen [[place] 5 mg PO TID PRN 02/13/17 02/13/17 02/10/17 History 5-325 Tablet] - History of Present Illness-Resp Nature of Presenting Problem: Pt present for rehab with SOB. She is known to have COPD and was recently discharged after being treated from pneumonia (Guille Millan) Review of Systems - Adult - REVIEW OF SYSTEMS - ADULT Constitutional: reports: no symptoms reported. denies: chills, fever, fatique, night sweats, weight gain, weight loss Eyes: reports: no symptoms reported. denies: discharge, dry eyes, decreased vision, blurred vision, double vision, eye pain, redness Ears, Nose, Mouth & Throat: reports: no symptoms reported. denies: see HPI, ear pain, hearing loss, tinnitus, sinus problem, loose teeth, mouth swelling, hoarseness, throat pain, throat swelling Cardiovascular: reports: no symptoms reported. denies: chest pain, edema, orthopnea, poor circulation, PND, syncope Respiratory: reports: see HPI, cough, shortness of breath, wheezing. denies: chronic cough, dyspnea on exertion, excessive sputum production, pleurisy Gastrointestinal: reports: no symptoms reported. denies: abdominal pain, hematemesis, constipation, diarrhea, difficulty swallowing, nausea, poor appetite, rectal bleeding, vomiting Genitourinary: reports: no symptoms reported. denies: dysuria, discharge, frequency, flank pain, frequent UTI's, hesitency, incontinence, urinary retention, urgency Musculoskeletal: reports: no symptoms reported. denies: bone pain, back pain, frequent leg cramps, joint pain, joint swelling, muscle aches, muscle weakness, neck pain Integumentary: reports: no symptoms reported. denies: hives, hair loss, mole changes, nail changes, rash, skin sores/ulcer, skin thickening Neurological: reports: no symptoms reported. denies: ataxia, dizziness/vertigo , headache/migraines, loss of balance, numbness, seizure, slurred speech, syncope, tremors Psychiatric: reports: no symptoms reported. denies: anxiety, anti-depressant use, alcohol/drug dependence, depression, emotional problems, panic attacks, suicidal thoughts Endocrine: reports: no symptoms reported. denies: change in skin pigment, excessive sweating, goiter, cold intolerance, heat intolerance, increased hunger , increased thirst, polyuria Hematologic/Lymphatic: reports: no symptoms reported. denies: blood clots, easy bruising, lymphedema, prolonged bleeding, swollen lymph nodes, transfusions Allergic/Immunologic: reports: no symptoms reported. denies: allergic reactions , allergic rhinitis, asthma, eczema, food allergy, hay fever, hives, positive PPD, urticaria All Other Systems: Reviewed and Negative <Guille Millan - Last Filed: 02/13/17 01:15> Past History - Adult - PAST MEDICAL HISTORY-ADULT Review of Records: reports: Old Records Reviewed, Nursing Assessment Review, Medications Reviewed, Social history reviewed & non-contributory. Major Childhood Illnesses: reports: denies history Cardiovascular: reports: CHF, HTN Respiratory: reports: COPD Gastrointestinal: reports: other (gastroparesis) Obstetrical/Gynecological: reports: denies history Genitourinary: reports: dialysis, ESRD, kidney disease Musculoskeletal: reports: denies history Neurological: reports: denies history Psychiatric: reports: anxiety Endocrine/Immune: reports: denies history Other Conditions: reports: denies history - PRIOR SURGERIES/PROCEDURES Surgical/Procedure History: reports: cholecystectomy, indwelling device, other ( J tube placement, fistula to the left arm/dvt) - PRIOR HOSPITALIZATIONS Prior Hospitalizations: reports: for similar symptoms - IMMUNIZATION STATUS Childhood Immunizations: See Nurse Assessment Flu Vaccine: See Nurse Assessment - FAMILY HISTORY Family History: reviewed, not pertinent - SOCIAL HISTORY Smoking: cigarettes, less than 1 pack/day Provider spent 3-5 mins advising pt. on dangers of tobacco.: Discussed manners to quit use, and f/u contacts for add'l counseling. Substance Use: none/never Alcohol Use Frequency: never <Guille Millan - Last Filed: 02/13/17 01:15> Physical Exam-General - PHYSICAL EXAM-ADULT Initial Vital Signs Reviewed: Yes - CONSTITUTIONAL General Appearance: alert, no apparent distress, moderate distress, thin - EYES Eyes: PERRL/EOMI, pink conjunctivae - HEAD, EARS, NOSE, MOUTH & THROAT HENMT: normocephalic/atraumatic, moist mucous membranes, normal ENT inspection - NECK Neck: non-tender, full range of motion - RESPIRATORY Respiratory: chest non-tender, no pleuratic chest pain, respiratory distress, decreased breath sounds, wheezing, prolonged expiration, increased rate - CARDIOVASCULAR Cardiovascular: normal peripheral pulses, tachycardia - GASTROINTESTINAL (ABDOMEN) Abdominal Exam: normal bowel sounds, non tender, soft - GENITOURINARY Female Genitalia/Pelvic Exam: deferred Rectal Exam: deferred - MUSCULOSKELETAL Back Exam: normal inspection, no CVA tenderness, no vertebral tenderness Extremity: normal range of motion, non-tender, normal gait - SKIN Integumentary: normal color, normal turgor, warm/dry - NEUROLOGIC Neurologic: behavior support specialist II-XII nml as tested, grossly normal - PSYCHIATRIC Psych/Mental Status: normal mood/affect, normal thought content, normal thought process, oriented x 3 <Guille Millan - Last Filed: 02/13/17 01:15> Progress - EKG 1 Time of EKG reading by physician:: 23:08 EKG Read and Signed by:: Darryl Cruz EKG Interpretation (*Must complete 3 of following elements*): Abnormal Rate: 118 Rhythm: sinus tachycardia ST Wave: non-specific ST changes (marked ST abnormality) Comments: possible left atrial enlargement <Griselda Gregory - Last Filed: 02/12/17 23:45> - XRAY 1 XRAY Study: Chest XRAY Interpretation: increased pulm vasc markings, RLL infiltrate (hcb) - CONSULTS/PCP/HOSPITALIST Notification #1 *Consult/PCP/Hospitalist*: maxine Time Discussed: 01:13 Consult Disposition: Will see in ED, Admit <Guille Millan - Last Filed: 02/13/17 01:15> - PLAN OF CARE/RESULTS Progress/Plan/Lab Results: Laboratory Tests 02/12/17 02/12/17 02/12/17 23:20 23:20 23:55 WBC 11.09 H RBC 3.35 L Hgb 10.2 L Hct 33.7 L MCV 100.6 H MCH 30.4 MCHC 30.3 L RDW Std Deviation 20.6 H Plt Count 170 MPV 10.7 H Immature Gran % (Auto) 0.2 Neut % (Auto) 91.2 H Lymph % (Auto) 3.7 L [place] % (Auto) 3.4 Eos % (Auto) 1.2 Baso % (Auto) 0.3 Immature Gran # (Auto) 0.02 Neut # (Auto) 10.12 H Lymph # (Auto) 0.41 L [place] # (Auto) 0.38 Eos # (Auto) 0.13 Baso # (Auto) 0.03 Specimen Type ARTERIAL Sample Site R RADIAL pH 7.40 pCO2 46 H pO2 399 H HCO3 27.4 H Base Excess 3.2 H Oxyhemoglobin 96.2 ABG O2 Sat (Calculated) 14.0 L ABG O2 Saturation 99.5 ABG Carboxyhemoglobin 1.50 ABG Methemoglobin 1.7 H Tigre Test YES A-a O2 Difference 257.0 Total Hemoglobin 9.5 L Lactate 2.20 Blood Gas Modality BI PAP Spontaneous Rate 4 FiO2 % 100.0 Inspiratory BiPAP 14.0 Expiratory BiPAP 6.0 Sodium 138 Potassium 3.2 L Chloride 94 L Carbon Dioxide 23 L Anion Gap 21 BUN 27 H Creatinine 3.9 H Estimated GFR/1.73 m2 12 BUN/Creatinine Ratio 7 Glucose 273 H Calculated Osmolality 290 Calcium 8.9 Total Bilirubin 0.23 AST 21 ALT 31 Alkaline Phosphatase 166 H Total Protein 6.7 Albumin 3.6 Globulin 3.1 Albumin/Globulin Ratio 1.2 Orders Category Date Time Status Romero Cath Insertion ORDERED Care 02/13/17 00:08 Active Saline Loc DIRECTED Care 02/12/17 23:28 Active cxr [CHEST-1 VIEW] [RAD] Stat Exams 02/12/17 23:28 Taken ABG [RESP] Routine Lab 02/12/17 23:55 Completed BLOOD CULTURE [BLDCUL] Stat Lab 02/13/17 00:50 Ordered CBC WITH DIFF [HEME] Stat Lab 02/12/17 23:20 Completed COMPREHENSIVE METABOLIC PANEL [CHEM] Stat Lab 02/12/17 23:20 Completed UA Reflex [URINALYSIS W/POSS RFLX CULT] [URINALYSIS] Lab 02/12/17 23:29 Uncollected Stat Albuterol 2.5MG/Ipratrop 0.5MG [Duoneb (A & A)] Med 02/12/17 23:28 Discontinued 3 ml INH NOW ONE CefTRIAXONE 1 GM/NS [Rocephin 1 gm/Ns] 50 ml Med 02/13/17 00:09 Discontinued IV NOW Furosemide [Lasix] Med 02/13/17 00:08 Discontinued 40 mg IV NOW ONE Methylprednisolone Sod Succ [Solu-Medrol] Med 02/12/17 23:33 Discontinued 80 mg IV NOW ONE Aerosol Treatments Routine Oth 02/12/17 23:29 Completed Aerosol Treatments Stat Oth 02/12/17 23:28 Active Aerosol Treatments Stat Oth 02/12/17 23:29 Completed BIPAP Stat Oth 02/13/17 00:31 Active Pulse Oximetry Stat Oth 02/12/17 23:28 Completed EKG [EKG] Stat Ther 02/12/17 22:56 Ordered Vital Signs - 24 hr 02/12/17 02/12/17 02/13/17 23:33 23:39 00:04 Pulse Rate 144 H 117 H 88 Respiratory 31 H 17 16 Rate Blood Pressure 191/113 161/96 O2 Sat by Pulse 89 L 100 100 Oximetry (Guille Millan) Departure <Griselda Gregory - Last Filed: 02/12/17 23:45> - Departure Time of Disposition Order: 01:15 Certified Medical Emergency: Emergent <Giulle Millan - Last Filed: 02/13/17 01:15> - Departure DIAGNOSIS: CHF (congestive heart failure) Qualifiers: Congestive heart failure type: unspecified congestive heart failure type Congestive heart failure chronicity: acute on chronic Qualified Code(s): I50.9 - Heart failure, unspecified COPD (chronic obstructive pulmonary disease) Qualifiers: COPD type: unspecified COPD Qualified Code(s): J44.9 - Chronic obstructive pulmonary disease, unspecified Pneumonia Qualifiers: Pneumonia type: due to unspecified organism Laterality: right Lung location: lower lobe of lung Qualified Code(s): J18.1 - Lobar pneumonia, unspecified organism Disposition: ADMITTED INPATIENT 09 Condition: Good Additional Instructions: ED Follow Up Instructions: You have been treated by a care provider in the Emergency Department. These instructions are being provided to you so you can have an understanding of how to care for yourself upon discharge. Upon discharge from the Emergency Department, you are responsible for making arrangements for follow-up care by a physician of your choice. Take all prescribed medications as directed. Return to the Emergency Department immediately for any new or worsening symptoms. You may call the Physician Referral phone number at [phone] to obtain a list of Physicians who are taking new patients. Referrals: None,PCP [Primary Care Provider] - Attestation - Physician/ STEFANO Attestation Patient care was provided by Advanced Practice Provider:: Yes Advanced Practice Provider:: Guille Millan Advanced Practice Provider documentation review:: The Mid-level provider documentation, treatment plan and medical decision making was reviewed by the physician who agrees with all treatment and medical decision making by the MLP. <Guille Millan - Last Filed: 02/13/17 01:15> Physician Attestation - Physician Attestation I, the provider, attest to the following statement:: Guille Millan Physician documentation Attestation:: This documentation recorded by the scribe accurately reflects the service I personally performed and the decisions made by me. <Guille Millan - Last Filed: 02/13/17 01:15>
[2017-02-12 23:59] LABS: ALLEN TEST YES; BE 3.2 mmoll (-3.0-3.0); BLOOD TYPE ARTERIAL; DRAW SITE R RADIAL; METHB 1.7 % (0.0-1.5); PCO2(98.6) 46 mmHg (35-45); PO2(98.6) 399 mmHg (60-100); SAMPLE BLOOD; SAO2 99.5 % (95.0-100.0); SRATE 4 BPM; THB 9.5 g/dL (11.5-17.4)
[2017-02-13] LABS: MODALITY BI PAP
[2017-02-13] LABS: BASO% 0.3 % (0.0-0.8); EOS# 0.13 X1000 (0.0-0.7); EOS% 1.2 % (0.0-10.0); HEMATOCRIT 33.7 % (37.0-47.0); HEMOGLOBIN 10.2 g/dL (12.0-16.0); IMM GRAN# 0.02 X1000 (0.0-0.04); IMM GRAN% 0.2 % (0.0-0.5); LYMPH# 0.41 X1000 (1.2-3.4); LYMPH% 3.7 % (20.5-51.1); MANUAL DIFF NEEDED? NO; MCH 30.4 PG (27-31); MCHC 30.3 g/dL (33-37); MCV 100.6 FL (81-99); MONO# 0.38 X1000 (0.11-0.59); MONO% 3.4 % (1.7-9.3); MPV 10.7 FL (7.4-10.4); NEUT% 91.2 % (42.2-75.2); PLT 170 X1000 (130-400); RBC 3.35 XMIL (4.2-5.4)
[2017-02-13] MEDS ORDERED: LASIX IV ONE (00:08)
[2017-02-13] MEDS ORDERED: ROCEPHIN 1 GM/NS 50 ML IV ONE (00:09)
[2017-02-13 00:37] LABS: ALBUMIN 3.6 g/dL (3.5-5.0); CALCIUM 8.9 mg/dL (8.8-10.2); POTASSIUM 3.2 mmol/L (3.5-5.1); TOTAL BILIRUBIN 0.23 mg/dL (0.20-1.00); TOTAL PROTEIN 6.7 g/dL (6.3-8.3)
[2017-02-13] MEDS ORDERED: DILAUDID IV ONE (01:29)
[2017-02-13] MEDS ORDERED: ZOFRAN IV ONE (01:30)
[2017-02-13 04:29] LABS: INR 1.01; PROTIME 10.3 Seconds (9.2-11.7); PTT HEPARIN PROTOCOL 26.9 Seconds
[2017-02-13] MEDS ORDERED: NORCO-5 PO PRN ×2 (04:49→05:47)
[2017-02-13] MEDS ORDERED: CATAPRES PO SCH ×2 (04:49→09:00)
[2017-02-13] MEDS ORDERED: CARAFATE LIQUID PO SCH ×2 (04:49→09:00)
[2017-02-13] MEDS ORDERED: SOLU-MEDROL IV SCH (04:49)
[2017-02-13] MEDS ORDERED: TUMS PO PRN (04:49)
[2017-02-13] MEDS ORDERED: LEVAQUIN 750 MG/D5W 150 ML IV SCH (04:49)
[2017-02-13] MEDS ORDERED: APRESOLINE PO PRN ×3 (04:49→05:48)
[2017-02-13] MEDS ORDERED: LEVAQUIN 750 MG/D5W 150 ML IV ONE (05:21)
[2017-02-13 05:33] LABS: ALLEN TEST YES; BE 3.5 mmoll (-3.0-3.0); BLOOD TYPE ARTERIAL; DRAW SITE R BRACHIAL; METHB 1.8 % (0.0-1.5); O2(CT) 13.2 mL/dL (15.0-23.0); PCO2(98.6) 40 mmHg (35-45); PO2(98.6) 108 mmHg (60-100); SAMPLE BLOOD; SAO2 98.9 % (95.0-100.0); SRATE 4 BPM; THB 9.7 g/dL (11.5-17.4); pH(98.6) 7.45 (7.35-7.45)
[2017-02-13 05:34] LABS: MODALITY BI PAP
[2017-02-13] MEDS: CATAPRES PO SCH ×3 (06:30→20:29)
[2017-02-13] MEDS: PRILOSEC PO SCH (06:30)
[2017-02-13] MEDS: CARAFATE LIQUID PO SCH ×3 (06:35→18:47)
[2017-02-13] MEDS ORDERED: DUONEB (A & A) ONE (06:57)
[2017-02-13] MEDS: DUONEB (A & A) INH SCH ×5 (07:10→23:26)
--- NOTE | 2017-02-13 07:22 | EKG Report ---
Test Performed on : 02/12/2017 11:08:16 PM Test Reason : SOB Blood Pressure : / mmHG Vent. Rate : 118 BPM Atrial Rate : 118 BPM P-R Int : 120 ms QRS Dur : 084 ms QT Int : 354 ms P-R-T Axes : 052 026 155 degrees QTc Int : 496 ms Sinus tachycardia. Possible Left atrial enlargement Marked ST abnormality, possible inferior subendocardial injury Abnormal ECG When compared with ECG of 29-JAN-2017 22:49, T wave inversion no longer evident in Anterior leads Unconfirmed Result
[2017-02-13 07:33] LABS: BASO% 0.2 % (0.0-0.8); HEMATOCRIT 31.4 % (37.0-47.0); HEMOGLOBIN 9.7 g/dL (12.0-16.0); LYMPH# 0.18 X1000 (1.2-3.4); LYMPH% 3.1 % (20.5-51.1); MANUAL DIFF NEEDED? YES; MCH 30.6 PG (27-31); MCHC 30.9 g/dL (33-37); MCV 99.1 FL (81-99); MONO# 0.03 X1000 (0.11-0.59); MONO% 0.5 % (1.7-9.3); MPV 10.9 FL (7.4-10.4); NEUT% 96.2 % (42.2-75.2); PLT 130 X1000 (130-400); RBC 3.17 XMIL (4.2-5.4)
[2017-02-13] MEDS: HUMALOG SUBQ SCH ×4 (07:33→23:12)
[2017-02-13 07:39] LABS: EOS 1 % (1-10); HYPOCHROM 2+; LYMPHS 6 % (21-51)
[2017-02-13 07:49] LABS: ALBUMIN 3.5 g/dL (3.5-5.0); CALCIUM 9.3 mg/dL (8.8-10.2)
[2017-02-13 07:57] LABS: POTASSIUM 4.8 mmol/L (3.5-5.1)
--- NOTE | 2017-02-13 07:58 | Diag Imaging Result Document ---
PROCEDURE NAME: CHEST-1 VIEW - 02/12/2017 PORTABLE CHEST X-RAY, 02/12/2017: COMPARISON: 02/01/2017. FINDINGS: Stable cardiomegaly. There is significant worsening in ill-defined interstitial infiltrates diffusely and bilaterally compatible with pulmonary edema. There are [place] B-lines bilaterally. There are small pleural effusions. IMPRESSION: Cardiomegaly. Worsening pulmonary edema and pleural effusions.
[2017-02-13] MEDS: REGLAN PO SCH ×4 (08:18→20:27)
[2017-02-13] MEDS: NEPHROCAPS PO SCH (08:18)
[2017-02-13] MEDS: LASIX PO SCH (08:18)
[2017-02-13] MEDS: NORVASC PO SCH (08:19)
[2017-02-13] MEDS: SOLU-MEDROL IV SCH ×2 (08:19→20:29)
[2017-02-13] MEDS: TOPROL XL PO SCH ×2 (08:20→20:29)
[2017-02-13] MEDS: VITAMIN D PO SCH (08:20)
[2017-02-13] MEDS ORDERED: TIGHT: 0.2 ML/HR MISC PRN (08:25)
[2017-02-13] MEDS ORDERED: HEPARIN IV PRN (08:25)
[2017-02-13] MEDS ORDERED: NS 2,000 ML MISC PRN (08:25)
--- NOTE | 2017-02-13 08:47 | HISTORY AND PHYSICAL ---
PRIMARY CARE PROVIDER: Dr. Guevara. PRODUCTION REPAIRER: Dr. Mustafa. CHIEF COMPLAINT: Shortness of breath and hypoxia. HISTORY OF PRESENT ILLNESS: Ms. Hobson is a 57-year-old female with a history of hypertension, COPD, and end-stage renal disease on hemodialysis. She was just recently discharged from [facility] on 02/05/2017 where she was being treated for pneumonia. During this visit, she also did have gastrointestinal bleeding and was found to have ulcerative esophagitis with an endoscopy which did reveal esophageal candidiasis, gastritis, and ulcerative esophagitis with recent bleeding. Patient reports that since being discharged she has had a cough that has been productive with clear sputum, though she reports that over the past day or two she has had fever. She also reports that she has been more short of breath the past day or two as well. This evening, just prior to her arrival at 2300 on February 12, she did become very short of breath. EMS reports that upon their arrival to [facility] where she is for rehab that she had oxygen saturation in the 60s on nasal cannula at 4 L. She was placed on CPAP en route, though this only increased her oxygen saturation into the 80s. After arriving to the ER, the patient was placed on BiPAP, and at this time her respiratory status is much improved. She is no longer distressed. She has oxygen saturations at 100% on BiPAP. The patient did also report some associated chest pain with her shortness of breath, though states that since being placed on BiPAP and since her breathing has improved this has subsided. She denies any headache, dizziness, abdominal pain, nausea, vomiting, dysuria, or swelling, pain, numbness, or tingling in her extremities. She did report that since being discharged from the hospital she has had diarrhea approximately 3 or 4 episodes a day. The patient's x-ray in the ER did show increased pulmonary vascular markings and a right lower lobe infiltrate. At this time, we will admit her for further management and evaluation of her pneumonia and acute hypoxic respiratory failure. REVIEW OF SYSTEMS: A 14-point review of systems was conducted with the patient and all were negative except for pertinent positives mentioned in the above HPI. PAST MEDICAL HISTORY: 1. Hypertension. 2. Hyperlipidemia. 3. Depression. 4. End-stage renal disease on hemodialysis on Tuesdays, , and Saturdays. 5. Gastritis. 6. Gastroparesis. 7. COPD. 8. Congestive heart failure. The patient had an echocardiogram on 01/23/2017 that showed an ejection fraction of 45% to 50%. PAST SURGICAL HISTORY: 1. Cholecystectomy. 2. A left fistula placement for hemodialysis. SOCIAL HISTORY: The patient denies any current tobacco, alcohol, or illicit drug use though did report that she just recently quit smoking during her last hospital admission in January of 2017. ALLERGIES: The patient reports allergies to amoxicillin and Augmentin. HOME MEDICATIONS: 1. DuoNeb, albuterol and Atrovent treatments, inhaled q.4 h. 2. Norvasc 10 mg p.o. daily. 3. Tums Chewables 1000 mg p.o. after meals and at bedtime p.r.n. 4. Vitamin D3 3000 units p.o. daily. 5. Klonopin 0.5 mg p.o. daily p.r.n. for anxiety. 6. Catapres 0.1 mg p.o. t.i.d. 7. Diflucan 100 mg p.o. daily. 8. Dialyvite 3000 tablet one p.o. daily. 9. Lasix 40 mg p.o. daily. 10.Apresoline 50 mg p.o. t.i.d. p.r.n. for systolic blood pressure greater than 165. 11.[place] 5 mg p.o. t.i.d. p.r.n. for pain. 12.Reglan 2.5 mg p.o. before meals and at bedtime. 13.Toprol XL 25 mg p.o. b.i.d. 14.Remeron 15 mg p.o. at bedtime. 15.Protonix 40 mg p.o. daily. 16.Carafate liquid one g p.o. q.6 h. DIAGNOSTIC DATA/LABORATORY RESULTS: White blood cell count 11.09, hemoglobin 10.2, hematocrit 33.7, platelet count 170. Sodium 138, potassium 3.2, chloride 94, bicarb 23, BUN 27, creatinine 3.9 with a GFR of 12, glucose 273 with a repeat fingerstick blood sugar of 114. Calcium 8.9. Total bilirubin is 0.23, AST 21, ALT 31, alkaline phosphatase 166. CK is 33. Troponin is 0.228. Arterial blood gases were obtained on BiPAP: FiO2 at 100%. pH was 7.4, pCO2 was 46, pO2 was 399, HCO3 was 27.4, base excess was 3.2 with an O2 saturation of 99.5. Chest x-ray did show increased pulmonary vascular markings and a right lower lobe pneumonia. EKG showed sinus tachycardia with a marked ST abnormality, possible inferior subendocardial injury, and possible left atrial enlargement at a rate of 118 with a QTc of 496. PHYSICAL EXAMINATION: VITAL SIGNS: Heart rate 108, respirations 15, blood pressure 160/91, oxygen saturation is 100% on BiPAP. GENERAL: Ms. Hobson is a pleasant 57-year-old female who was resting in the ER stretcher. She was in no acute distress. She was awake, alert, and able to answer all questions appropriately. HEENT: Head is atraumatic, normocephalic. Pupils were equal, round, and reactive to light, were 3 mm bilaterally and brisk. Subconjunctivae were slightly pale. Oral mucosa was moist. Oropharynx was clear. No oral candidiasis noted upon examination. NECK: Supple, trachea midline. No obvious JVD noted upon examination. No carotid bruits noted upon auscultation. CARDIOVASCULAR: The patient has a normal S1 and S2. No murmurs, gallops, or rubs noted with a tachycardic rate and a regular rhythm. PULMONARY: The patient has symmetrical chest expansion bilaterally. Lung sounds in the lung hernandez are clear, though in lower lung hernandez do have crackles noted in bilateral bases. ABDOMEN: Soft, nontender, nondistended. Bowel sounds were present in all 4 quadrants, were normoactive. GENITOURINARY: The patient does have a Romero catheter in place at this time, though at the time of my examination she did not have any urine output. The patient states that she does not produce much urine. EXTREMITIES: No cyanosis, clubbing, or edema noted. Pulse, motor, and sensory were intact in all extremities, as well. Pedal pulses were 3+ bilaterally. INTEGUMENTARY: The patient's skin is pink, warm, dry, and intact, no lesions or sores noted. NEUROLOGICAL: The patient is alert and oriented x3. Cranial nerves 2-12 are grossly intact. ASSESSMENT AND PLAN: 1. Right lower lobe pneumonia. The patient had previously been treated with Rocephin for this. We have placed her on Levaquin at this time 750 mg IV q.24 h. Blood cultures have been obtained. Sputum culture has been ordered. We will continue with aggressive pulmonary toilet and will continue to follow. 2. Acute hypoxic respiratory failure. This is likely secondary to the patient's pneumonia and was complicated by her underlying COPD disease. We will continue with BiPAP therapy at this time. We will repeat an ABG in the morning. We have order for the patient to have DuoNeb, albuterol/Atrovent treatments, and will monitor her respiratory status closely. 3. Chronic obstructive pulmonary disease. Will continue with the above-mentioned DuoNeb nebulizer treatments as well as place her on Solu-Medrol 40 mg IV q.12 h. and will continue to follow. 4. Congestive heart failure. The patient did receive a dose of 40 mg of Lasix IV in the ER. We will continue with Lasix 40 mg daily and will continue to follow her cardiovascular status closely. Will also trend cardiac enzymes, as well. Her troponin was elevated, though this could be likely secondary to her renal disease, though we will rule out any further cardiac involvement. 5. End-stage renal disease on hemodialysis Tuesdays, , and Saturdays. We have placed a consult with Dr. Mustafa and will await his evaluation and further recommendations for treatment of this. 6. Anemia. At this time, the patient's hemoglobin and hematocrit are 10 and 33, which is improvement since her previous discharge. The patient does have anemia which could be secondary to her renal disease, though she did recently have a gastrointestinal bleed during her last admission which required blood transfusion. At this time, there are no signs or symptoms of bleeding. We will continue to monitor this. 7. Diarrhea. The patient reports since being discharged from the hospital she has had up to 3 to 4 episodes of diarrhea a day. We will order stool studies and will await these results. 8. Hypertension. Will continue her home medications for this. The patient will be placed on the medical floor with telemetry. She will have vital signs q.4 h. We will do strict intake and output. GI prophylaxis will be provided with Protonix 40 mg daily. DVT prophylaxis will be provided with SCDs, given the patient's recent gastrointestinal bleeding. She will be on a renal diet. Further orders and recommendations pending hospital course, diagnostic studies, and physician evaluation. Dictated by MONICA Craft for Ronn Galvan MD
[2017-02-13] MEDS ORDERED: TOPROL XL PO SCH (09:00)
[2017-02-13] MEDS ORDERED: NORVASC PO SCH (09:00)
[2017-02-13] MEDS ORDERED: HEPARIN ONE (13:42)
[2017-02-13] MEDS ORDERED: NS 2,000 ML ONE (13:42)
--- NOTE | 2017-02-13 14:23 | CONSULTATION ---
DATE OF CONSULTATION: 02/13/2017 INDICATION: Shortness of breath. Pulmonary edema. Elevated cardiac enzymes. HISTORY OF PRESENT ILLNESS: Ms. Hobson is a 57-year-old, white female with a history of end-stage renal disease, COPD and hypertension. She presented for evaluation of shortness of breath as well as chest heaviness/tightness that has been ongoing for the last 2-3 weeks. She says it has been worsening over that time period. There has been no exertional component. She cannot think of any provokers or palliators. She has been compliant with all of her dialysis sessions with the exception of yesterday, at which point she cut one session short secondary to low blood pressure and nausea, vomiting. She was noted to have an O2 saturation into the 80s in route via EMS and has subsequently been placed on BiPAP. Her chest x-ray demonstrates significant pulmonary edema. PAST MEDICAL HISTORY: Significant for: 1. End-stage renal disease on Saturday, , Saturday dialysis. 2. Hypertension. 3. Hyperlipidemia. 4. Depression. 5. Gastritis. 6. COPD. 7. Mild systolic failure, EF 45%-50% by echo January 23. SOCIAL HISTORY: No current tobacco, alcohol or illicit drugs. She quit smoking about a month ago. REVIEW OF SYSTEMS: A 10 system review of systems is negative except for those things mentioned in HPI. PHYSICAL EXAMINATION: Vital Signs: Patient is afebrile. Heart rate of 90. Blood pressure 124/70. General: She is in no acute distress. HEENT: Oropharynx is moist. Poor dentition. Eye examination is pink conjunctivae, white sclerae. Neck: Examination shows no obvious thyromegaly or thyroid tenderness. Cardiovascular: She is in a regular rate and rhythm. She has no obvious murmurs. No S3. She has no lower extremity edema. Chest: Has mild diffuse rales throughout. No expiratory wheezes. Mild increased work of breathing, she is currently on BiPAP. Abdomen: Soft, nontender, nondistended. She has no obvious organomegaly. Skin: Warm and dry throughout, without any rashes. Neurological: Moving all extremities well. Cranial nerves 2 through 12 are intact without any sensation deficits. Psychiatric: Alert and oriented, pleasant. She has normal mood and affect. PERTINENT DATA: Her EKG demonstrates sinus tach rate of 118 beats per minute. She has mild diffuse ST-segment depression throughout. Compared to an EKG January 29 this does not appear appreciably different. Chest x-ray demonstrated worsening pulmonary edema and pleural effusions. Echo from the 23 of January showed an EF of 45%-50%, very difficult imaging, moderate LVH, RV systolic pressure of 54. Mild MR, mild TR. White count 5.8, hematocrit 31.4, platelet count 130,000. ABG shows a pH of 7.45, pCO2 of 40, PO2 of 108, that is on an FiO2 of 40%, making an A-a gradient of 127. Sodium 135, potassium 4.8, BUN 32, creatinine 4.1. ProBNP is greater than 35,000. She has cardiac enzymes that are positive at 0.241, notably the patient has had almost every check of her cardiac enzymes since June 2015 being positive except for one, they range between the 0.1 and 0.3 range and that accounts for 21 checks over that time period. ASSESSMENT: 1. Elevated cardiac enzymes. 2. Volume overload. PLAN: She is proceeding with dialysis. We may consider perfusion imaging over the next 24-48 hours as she has not had any stress testing performed I believe in almost 2 years. For now, we will continue to follow.
--- NOTE | 2017-02-13 16:01 | CONSULTATION ---
DATE OF CONSULTATION: 02/13/2017 REASON FOR ADMISSION: Increased work of breathing with hypoxia. REASON FOR CONSULT: Assistance with ESRD medical management and fluid volume overload. HISTORY OF PRESENT ILLNESS: Ms. Hobson is a 57-year-old white female who is known to our outpatient services for hemodialysis on Saturday, , Saturday. Patient was seen yesterday evening at our [facility]. She was short of breath. Her face is swollen. She was on 1 L extra off O2 at 3 L nasal cannula. Patient had greater than 6.3 kg on, at which time she stated that she was short of breath and her blood pressure was elevated. We had requested that she stay for her full entire treatment and let us attempt to get at least 6 kg off. After questioning today she states that she did. She did not improve. Subsequently, she returned to her [facility] where she is currently in rehab. EMS was called for her by [facility] due to decreased oxygen saturation. She was found in the 60% range with 4 L on nasal cannula on. She was placed on CPAP en route. Her oxygenation increased to 80%. Upon arrival to the ER patient was placed on 40% BiPAP. She does report some chest pain to the left side. She was recently hospitalized on 02/05/2017 for pneumonia. During this time she also developed gastrointestinal bleeding and had ulcerative esophagitis with endoscopy which revealed that she had candidiasis, gastritis, and ulcerative esophagitis. Subsequently, patient is now on 100% BiPAP. She is in the emergency room. She is waiting to be admitted. She remains in fluid volume overload. She continues to state that she is short of breath. She continues to state that she does have some left-sided chest pain. She denies any nausea, vomiting. No diarrhea. No fever or chills. She denies having any increased lower extremity swelling that she is aware of. In the emergency room it did show that she did have some right lower lobe infiltrate. Her BNP was greater than 35,000. Chest x-ray shows pneumonia with acute hypoxic respiratory failure. Patient is to be admitted for further evaluation. PAST MEDICAL HISTORY: End-stage renal disease with hemodialysis on Saturday, , Saturday, hypertension, hyperlipidemia, depression, gastritis, gastroparesis, COPD, congestive heart failure with the last ejection fraction noted at 45 to 50% in 01/2017. Patient has anemia secondary to previous blood loss. She also has anemia secondary to chronic disease. Patient also suffers from osteodystrophy secondary to chronic disease. PAST SURGICAL HISTORY: She has had a cholecystectomy, left fistula placement for hemodialysis, previous tunnel catheters, and a previous PEG tube placement for nutritional support. SOCIAL HISTORY: She is . She was living with her until just recently after her hospitalization on 02/05/2017. She was discharged to [facility] for rehab. She continues to smoke. She states that she is not smoking a full cigarette when she does, she just smoking a partial amount, and she states it is probably less than 2 cigarettes a day. She continues on home O2. The patient denies any alcohol or illicit drug use. FAMILY HISTORY: Noncontributory for kidney disease. Positive for hypertension. CURRENT ALLERGIES: Listed as amoxicillin, potassium clavulanate. HOME MEDICATIONS: Lasix, Toprol-XL, Reglan, Apresoline, Catapres, Norvasc, Tums , Dialyvite, DuoNeb, Remeron, Carafate liquid, Protonix, Diflucan, vitamin D3, Klonopin, and [place]. REVIEW OF SYSTEMS: Times 10 with pertinent positives listed above in the HPI. VITAL SIGNS: Patient's most recent vital signs, temperature of 97.4 degrees, blood pressure 135/84, heart rate 102, respirations are 30. She has just been decreased to 40 % BiPAP. She has had 0 recorded in or out. LABS: This a.m., sodium 138, potassium 3.2, chloride 94, CO2 23, BUN 27, creatinine 3.9, glucose 273. Her anion gap is 18, calcium 9.3, phosphorus 3.9, albumin 3.5. She does have positive troponins, though she is an AV fistula stick from dialysis. Her white count 5.86, hemoglobin 9.7, hematocrit 31.4, with a platelet count of 130,000. Patient's PT is 10.3, INR 1.01, PTT 26.9. Her ABGs this a.m., pH 7.45, CO2 40, PO2 108, bicarb 27.6, lactate of 1.5; this is on BiPAP 40%. PHYSICAL EXAMINATION: General: This is a 57-year-old white female. She is in no acute distress, though she does appear chronically ill. She is currently on BiPAP. She is sitting up in bed. HEENT: Normocephalic, atraumatic. Pupils are equal and reactive to light, about 3 mm. Mucous membranes are dry. Neck: Supple. Trachea midline. No obvious JVD upon evaluation, though patient is sitting straight up in bed. Cardiovascular: Regular rate and rhythm. She is tachycardic. She has no murmur or gallop appreciated. Pulmonary: She has crackles to the posterior bases bilateral about [address] She has coarse breath sounds. She continues on 40% BiPAP. Equal excursion. Abdomen: Large, round, soft, nontender. Positive bowel sounds. Slightly tympanic. Genitourinary: Romero catheter is placed at this time. No urine out. She usually has minimal urine with hemodialysis assist. Extremities: She has trace pretibial edema. No clubbing or cyanosis. Integumentary: Skin is warm and dry. She has no rashes or lesions evident. Neurological: Alert and oriented x3. ASSESSMENT AND PLAN: 1. End-stage renal disease. Patient had her routine dialysis treatment yesterday. She states that she stayed for her full entire treatment with attempt to pull 6 kg off on dialysis. Due to patient's fluid volume overload, her elevated BNP, and the fact that she remains on BiPAP, we will plan to place her on dialysis for ultrafiltration of approximately 3- 4 L as tolerated with plan for her regular routine dialysis in the a.m. 2. Acute hypoxic respiratory failure. Patient does have recurrent pneumonia with underlying chronic obstructive pulmonary disease. She remains on BiPAP at this time, assistance with DuoNeb as ordered and albuterol Atrovent treatments per aerosol with continued assistance with hemodialysis. 3. Electrolytes. Patient has mild hypokalemia. Again, we will correct on a 3 K bath. 4. Acidosis. This actually is stable. 5. Anemia. This remains low but stable. No further indication needed. 6. Hypertension. We will continue to monitor. She is on her home medications. 7. Recent diarrhea. Patient reports that she has only had 1 or 2 episodes, nothing recently in the last week. I would like to thank you for allowing us to follow with this patient. Seen, data reviewed, discussed with Mick Bowman on 02/13/17. I agree with the above assessment and plan of care. rg Dictated by MONICA Pereyra for Onesimo Mustafa MD MTDD
[2017-02-13] MEDS: REMERON PO SCH (20:30)
[2017-02-13] MEDS: KLONOPIN PO PRN (20:34)
[2017-02-14] MEDS: CARAFATE LIQUID PO SCH ×5 (02:45→23:29)
[2017-02-14] MEDS: DUONEB (A & A) INH SCH ×6 (03:30→23:00)
[2017-02-14] MEDS ORDERED: PNEUMOVAX 23 IM ONE (05:29)
[2017-02-14] MEDS: PRILOSEC PO SCH (06:12)
[2017-02-14] MEDS: REGLAN PO SCH ×4 (06:12→21:17)
[2017-02-14] MEDS: CATAPRES PO SCH ×3 (06:13→21:17)
[2017-02-14] MEDS: HUMALOG SUBQ SCH (06:47)
--- NOTE | 2017-02-14 07:08 | PROGRESS NOTE ---
DATE: 02/14/2017 SUBJECTIVE: Ms. Hobson admitted with shortness of breath, chest congestion, mild cough. No unusual expectoration. No high-grade fever or chills. The patient does have chest pain. Her cardiac isoenzymes were staying elevated. No nausea or vomiting. The patient does have end-stage renal disease, on hemodialysis. Recently discharged from hospital when patient was found to have bronchopneumonia, esophageal candidiasis, blood loss anemia. PHYSICAL EXAMINATION: Vital Signs: Her vital signs noted. Neck: Supple. No JVD. Lungs: Bibasilar few rales. Occasional wheezing. CVS: S1 and S2 heard. Abdomen: Soft. No distention. Bowel sounds present. 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 Able to move all 4 limbs. CONSIDERATION: 1. Pulmonary edema. Patient does have chest pain. Her enzymes, troponin is elevated, could be due to renal failure but considering her chest pain, multiple risk factors, I did a cardiology consult. I appreciate Dr. Castillo's help managing patient. He is planning to do a stress test. 2. End-stage renal disease, on hemodialysis. 3. Hypertension. 4. Gastritis and reflux disease. PLAN: Current medications reviewed. We will continue current treatment and close observation.
[2017-02-14] MEDS: NEPHROCAPS PO SCH (08:49)
[2017-02-14] MEDS: VITAMIN D PO SCH (08:49)
[2017-02-14] MEDS: TOPROL XL PO SCH ×2 (08:50→21:17)
[2017-02-14] MEDS: LASIX PO SCH (08:50)
[2017-02-14] MEDS: NORVASC PO SCH (08:50)
[2017-02-14] MEDS ORDERED: NS 2,000 ML MISC PRN (08:56)
[2017-02-14] MEDS ORDERED: HEPARIN IV PRN (08:56)
[2017-02-14] MEDS ORDERED: TIGHT: 0.2 ML/HR MISC PRN (08:56)
[2017-02-14 09:56] LABS: BASO% 0.1 % (0.0-0.8); EOS# 0.01 X1000 (0.0-0.7); EOS% 0.1 % (0.0-10.0); HEMATOCRIT 28.8 % (37.0-47.0); HEMOGLOBIN 8.6 g/dL (12.0-16.0); IMM GRAN# 0.02 X1000 (0.0-0.04); IMM GRAN% 0.2 % (0.0-0.5); LYMPH# 0.51 X1000 (1.2-3.4); MANUAL DIFF NEEDED? NO; MCHC 29.9 g/dL (33-37); MCV 100.3 FL (81-99); MONO# 0.34 X1000 (0.11-0.59); MPV 10.5 FL (7.4-10.4); NEUT% 89.6 % (42.2-75.2); PLT 165 X1000 (130-400); RBC 2.87 XMIL (4.2-5.4)
[2017-02-14 11:15] LABS: ALBUMIN 3.4 g/dL (3.5-5.0); POTASSIUM 4.8 mmol/L (3.5-5.1)
[2017-02-14] MEDS ORDERED: NS 2,000 ML ONE (14:07)
--- NOTE | 2017-02-14 16:10 | PROGRESS NOTE ---
DATE: 02/14/2017 SUBJECTIVE: Ms. Hobson is resting quietly in bed. She is now on oxygen. She is off her BiPAP after having dialysis yesterday. She denies any chest pain. States she still continues to be short of breath with any exertion. OBJECTIVE: Her most recent vital signs, temperature 98.6, blood pressure 150/80 , heart rate 91, respirations 16. She is on 3 L nasal cannula. Last recorded saturation is 100% . She has had 600 in. She has had 2.7 L pulled on dialysis yesterday. LABS: This a.m. are still pending. Completed at 0940, show a sodium of 137, potassium 4.8, chloride 94, CO2 of 22, BUN 69, creatinine 6, glucose 165. Her anion gap is 21 , calcium 9, phosphorus 4.2, albumin 3.4. White count 8.5. Hemoglobin 8.6, hematocrit 28.8 , with a platelet count of a 165,000. PHYSICAL EXAMINATION: General: This is a 57-year-old, white female. She appears chronically ill though no acute distress. Skin: Warm and dry. HEENT: Normocephalic, atraumatic. Conjunctivae pale. She has MEENAKSHI. Mucous membranes are moist. Neck: Supple. Trachea midline. She has trace JVD. Cardiovascular: Regular rate and rhythm. She remains tachycardic. No murmur or gallop appreciated. Lungs: Clear to auscultation anterior. She has crackles to the posterior bases continue, though bases only. She is on 3 L nasal cannula. Equal excursion. Abdomen: Round, soft, nontender. Positive bowel sounds. Genitourinary: Minimal void with dialysis assist. Integumentary: No rashes or lesions evident though she does continue to have different stages of ecchymoses to her upper arms and legs. Neurological: She is alert and oriented x3. ASSESSMENT AND PLAN: 1. End-stage renal disease. Patient had ultrafiltration yesterday. We will plan for her normal dialysis treatment today. We will place her on a 2K bath. She is to dialyze. We will attempt to challenge her dry weight. 2. Electrolytes and acid-base balance. These are stable. 3. Anemia. This remains low, but stable. 4. Fluid volume overload. This has improved. I would like to thank you for allowing us to follow with this patient. Seen, data reviewed, discussed with Mick Bowman on 02/14/17. I agree with the abive assessment and plan of care. rg Dictated by MONICA Pereyra for Onesimo Mustafa MD MTDD
--- NOTE | 2017-02-14 17:34 | PROGRESS NOTE ---
DATE: 02/14/2017 SUBJECTIVE: Ms. Hobson is currently on dialysis. She is having some mild nausea. She is apparently having some trials of her dry weight. PHYSICAL EXAMINATION: Vital Signs: She is afebrile. Heart rate of 90, blood pressure 136/74. General: She is in no acute distress. Cardiovascular: Regular rate and rhythm. She has no murmurs, no S3, no lower extremity edema. Chest Exam: Clear bilaterally. No increased work of breathing. PERTINENT DATA: White count is 8.5, hematocrit 28.8, platelet count is 165,000. Her sodium is 137, potassium 4.8 BUN 69, creatinine 6. ASSESSMENT: 1. Elevation of the troponin. 2. Volume overload. PLAN: I will have a discussion with Dr. Mustafa tomorrow. We will likely proceed with myocardial perfusion imaging in the near future to assess any burden of ischemia. If nuclear imaging is normal and the patient continues to have conflicting clinical information regarding her volume status we may need to consider cardiac catheterization.
[2017-02-14] MEDS ORDERED: SOLU-MEDROL IV SCH (20:00)
[2017-02-14] MEDS: REMERON PO SCH (21:18)
[2017-02-14] MEDS: KLONOPIN PO PRN (21:20)
[2017-02-15] MEDS: DUONEB (A & A) INH SCH ×5 (03:08→19:59)
[2017-02-15] MEDS: CATAPRES PO SCH ×3 (05:43→20:13)
[2017-02-15] MEDS: LEVAQUIN 500 MG/D5W 100 ML IV SCH (05:58)
[2017-02-15] MEDS: REGLAN PO SCH ×5 (05:59→20:13)
[2017-02-15] MEDS: PRILOSEC PO SCH (05:59)
[2017-02-15] MEDS: CARAFATE LIQUID PO SCH ×4 (05:59→17:01)
--- NOTE | 2017-02-15 06:42 | PROGRESS NOTE ---
DATE: 02/15/2017 SUBJECTIVELY: Ms. Elisa Hobson is doing better. Her shortness of breath is improving. No typical chest pain. No fever or chills. Oral intake is good. She denied any nausea or vomiting. OBJECTIVE: Vital Signs: Her vital signs reviewed. Neck: Supple. No JVD. Lungs: Bilateral good air entry present. CVS: S1 and S2 heard, 2/6 systolic murmur at the apex. Abdomen: Soft, globular. Bowel sounds present. Extremities: No cyanosis, clubbing. No acute DVT. TIRE TESTER: Alert, awake. Able to move all 4 limbs. CONSIDERATION/PLAN: 1. Patient admitted with chest pain. 2. Recurrent pulmonary edema. 3. Possibility of myocardial ischemia cannot be ruled out. Appraisal Analyst following patient with us. Plan is to get myocardial perfusion scan. 4. End-stage renal disease. The patient is on hemodialysis. 5. Chronic obstructive pulmonary disease. 6. Hypertension. 7. Situational depression. 8. Gastritis. Overall patient is improving slowly. We are waiting for her stress test. Meanwhile, continue current treatment and close observation. I am going to taper her Solu-Medrol and stop it.
[2017-02-15 06:52] LABS: HEMATOCRIT 30.8 % (37.0-47.0); IMM GRAN# 0.02 X1000 (0.0-0.04); IMM GRAN% 0.3 % (0.0-0.5); LYMPH# 0.38 X1000 (1.2-3.4); LYMPH% 4.9 % (20.5-51.1); MANUAL DIFF NEEDED? YES; MCHC 29.2 g/dL (33-37); MCV 102.7 FL (81-99); MONO# 0.21 X1000 (0.11-0.59); MONO% 2.7 % (1.7-9.3); NEUT% 92.1 % (42.2-75.2); PLT 180 X1000 (130-400)
[2017-02-15 07:10] LABS: ALBUMIN 3.5 g/dL (3.5-5.0); CALCIUM 8.8 mg/dL (8.8-10.2); MAGNESIUM 1.7 mg/dL (1.5-2.7); POTASSIUM 4.6 mmol/L (3.5-5.1); TOTAL BILIRUBIN 0.14 mg/dL (0.20-1.00); TOTAL PROTEIN 6.2 g/dL (6.3-8.3)
[2017-02-15 07:29] LABS: BANDS 4 % (0-1); LYMPHS 2 % (21-51)
[2017-02-15 08:02] LABS: HEMOGLOBIN A1C 4.2 % (4.8-6.0)
[2017-02-15] MEDS: VITAMIN D PO SCH (09:07)
[2017-02-15] MEDS: NEPHROCAPS PO SCH (09:07)
[2017-02-15] MEDS: TOPROL XL PO SCH ×2 (09:08→20:14)
[2017-02-15] MEDS: LASIX PO SCH (09:08)
[2017-02-15] MEDS: NORVASC PO SCH (09:08)
[2017-02-15] MEDS: SOLU-MEDROL IV SCH (09:09)
--- NOTE | 2017-02-15 14:08 | PROGRESS NOTE ---
DATE: 02/15/2017 TIME SEEN: 0735. SUBJECTIVE: Ms. Hobson is resting quietly in bed. She has no complaints. States that she is breathing better. She does continue with a cough. OBJECTIVE: Vital signs: Her most recent vital signs, her temperature is 98.1 degrees, blood pressure 116/58, heart rate 85, respirations 18. She continues on 3 L nasal cannula. Her last recorded saturation is 100%. Input and output: She has had 952 in. She has had 2715 out. General: This is a 57-year-old white female. She is sitting up in bed. She is in no acute distress. Skin: Warm and dry. HEENT: Normocephalic, atraumatic. Conjunctivae pale. She has MEENAKSHI. Mucous membranes moist. Neck: Supple. Trachea midline. No JVD. Cardiovascular: Regular rate and rhythm. She is less tachycardic today. She has a soft murmur. No gallop. Lungs: Clear to auscultation anteriorly. Equal excursion. She continues with bibasilar crackles posterior on O2, equal excursion. Abdomen: Soft, round, nontender. Positive bowel sounds. Genitourinary: Not inspected. Minimal void with dialysis assist. Integumentary: No rashes or lesions evident. Extremities: Have no edema. No clubbing or cyanosis. Neurological: She is alert and oriented x3. LABORATORY: This a.m., sodium 139, potassium 4.6, chloride 95, CO2 26, BUN 34, creatinine 3.8, glucose 128. Her anion gap is 18, calcium is 8.8, magnesium 1.7, albumin 3.5. White count 7.75, hemoglobin 9, hematocrit 30.8 with a platelet count of a 180,000. ASSESSMENT AND PLAN: 1. End-stage renal disease. Patient is due for her routine dialysis treatment in the a.m. No need for intervention today. Improved respiratory status. 2. Fluid volume overload. We challenged patient's dry weight yesterday. We were able to pull 2.7 L off. Again, we will plan for to challenge her dry weight on discharge. 3. Electrolytes and acid-base balance. These remain stable. 4. Anemia. This is close to target. I would like to thank you for allowing us to follow with this patient. Seen, data reviewed, discussed with Mick Bowman on 02/15/17. I agree with the above assessment and plan of care. rg Dictated by MONICA Pereyra for Onesimo Mustafa MD [facility]
--- NOTE | 2017-02-15 14:32 | PROGRESS NOTE ---
DATE: 02/15/2017 SUBJECTIVE: Ms. Hobson reports she is doing better. She has a good appetite. She is not short of breath presently, no chest pain. PHYSICAL EXAMINATION: Vital signs: She is afebrile. Heart rate of 89, blood pressure 113/55. General: No acute distress. Cardiovascular: She sounds to be in a regular rate and rhythm. She has no obvious murmurs. No lower extremity edema. Chest: Exam sounds clear bilaterally. She has no increased work of breathing. Abdomen: Soft, nontender, nondistended. She has no obvious organomegaly. PERTINENT DATA: White count 7.7, hematocrit 30.8, platelet count 180,000. Her sodium is 139, potassium 4.6, BUN 34, creatinine 3.8. ASSESSMENT: Elevated troponin in the setting of end-stage renal disease, volume overload. PLAN: Likely proceed with myocardial perfusion imaging on Saturday. I will make her NPO after midnight on Saturday for that study.
[2017-02-15] MEDS: REMERON PO SCH (20:14)
[2017-02-15] MEDS: KLONOPIN PO PRN (20:19)
[2017-02-16] MEDS: DUONEB (A & A) INH SCH ×7 (00:04→23:27)
[2017-02-16] MEDS: TYLENOL PO PRN (02:27)
[2017-02-16] MEDS: CARAFATE LIQUID PO SCH ×5 (02:27→18:43)
[2017-02-16] MEDS: PRILOSEC PO SCH ×2 (05:36→07:26)
[2017-02-16] MEDS: REGLAN PO SCH ×5 (05:36→22:21)
[2017-02-16] MEDS: CATAPRES PO SCH ×3 (05:37→23:14)
[2017-02-16 07:35] LABS: ALBUMIN 3.5 g/dL (3.5-5.0); CALCIUM 8.9 mg/dL (8.8-10.2); POTASSIUM 4.7 mmol/L (3.5-5.1)
[2017-02-16] MEDS ORDERED: NS 2,000 ML ONE (07:50)
[2017-02-16] MEDS: TOPROL XL PO SCH ×3 (07:53→23:14)
[2017-02-16] MEDS: LASIX PO SCH ×2 (07:53→14:57)
[2017-02-16] MEDS: VITAMIN D PO SCH ×2 (07:53→14:58)
[2017-02-16] MEDS: SOLU-MEDROL IV SCH (07:54)
[2017-02-16] MEDS: NORVASC PO SCH ×2 (07:54→14:58)
[2017-02-16] MEDS ORDERED: NS 2,000 ML MISC PRN (08:08)
[2017-02-16] MEDS ORDERED: HEPARIN IV PRN (08:08)
[2017-02-16] MEDS ORDERED: TIGHT: 0.2 ML/HR MISC PRN (08:08)
[2017-02-16] MEDS ORDERED: EPOGEN SUBQ ONE (10:41)
--- NOTE | 2017-02-16 12:09 | PROGRESS NOTE ---
DATE: 02/16/2017 SUBJECTIVE: Ms. Hobson is doing better. Shortness of breath improving. No typical chest pain. No high-grade fever or chills. Chest congestion and cough is better. Denied any nausea or vomiting. OBJECTIVE: Vital Signs: Her vital signs reviewed. Neck: Supple. No JVD. Lungs: Bilateral good air entry. CVS: S1 and S2 heard. Abdomen: Soft, nontender. Bowel sounds present. TEST DEPARTMENT HELPER: Alert, awake, able to move all 4 limbs. CONSIDERATION: 1. Recurrent pulmonary edema. 2. Elevated troponin. 3. History of chest pain. 4. Multiple risk factors. 5. Patient is scheduled to have myocardial perfusion study on Saturday. 6. End-stage renal disease, on hemodialysis. 7. Anemia most likely of chronic disease. Hemoglobin last one was 9. 8. Gastritis and reflux disease. I am going to stop Solu-Medrol. 9. Chronic obstructive pulmonary disease exacerbation. Continue bronchodilator treatment. PLAN: We will check appropriate labs. Continue current treatment. Overall plan discussed with the patient. She is in agreement. Her discharge is delayed because of weekend, inability to do stress test, and we have to wait until Saturday.
[2017-02-16] MEDS: NEPHROCAPS PO SCH (13:19)
--- NOTE | 2017-02-16 13:22 | PROGRESS NOTE ---
DATE: 02/16/2017 SUBJECTIVE: She is currently on dialysis. No new complaints today. OBJECTIVE: Vital signs: Blood pressure 146/67, heart rate 83, respirations 16, afebrile. LABORATORY DATA: Sodium 138, potassium 4.7, chloride 94, bicarbonate 25, BUN 66, creatinine 5.9, hemoglobin 9.0. IMPRESSION: 1. End-stage kidney disease: Continue her routine outpatient dialysis today. 2. Congestive heart failure, improved. 3. Anemia: Will dose with erythropoietin today.
[2017-02-16] MEDS: KLONOPIN PO PRN (22:21)
[2017-02-16] MEDS: REMERON PO SCH (22:22)
[2017-02-17] MEDS: DUONEB (A & A) INH SCH ×6 (04:13→23:51)
[2017-02-17] MEDS: LEVAQUIN 500 MG/D5W 100 ML IV SCH (05:53)
[2017-02-17] MEDS: CARAFATE LIQUID PO SCH ×5 (05:53→17:20)
[2017-02-17] MEDS: PRILOSEC PO SCH ×2 (05:53→06:52)
[2017-02-17] MEDS: REGLAN PO SCH ×5 (05:53→20:45)
[2017-02-17] MEDS: CATAPRES PO SCH ×3 (05:53→20:46)
[2017-02-17 06:24] LABS: MANUAL DIFF NEEDED? NO
[2017-02-17 06:32] LABS: BASO% 0.1 % (0.0-0.8); EOS# 0.17 X1000 (0.0-0.7); EOS% 2.4 % (0.0-10.0); HEMOGLOBIN 11.1 g/dL (12.0-16.0); IMM GRAN# 0.05 X1000 (0.0-0.04); IMM GRAN% 0.7 % (0.0-0.5); LYMPH% 9.9 % (20.5-51.1); MCH 30.8 PG (27-31); MCV 102.8 FL (81-99); MONO# 0.67 X1000 (0.11-0.59); MONO% 9.5 % (1.7-9.3); MPV 10.1 FL (7.4-10.4); NEUT% 77.4 % (42.2-75.2); PLT 238 X1000 (130-400)
[2017-02-17 06:43] LABS: ALBUMIN 3.6 g/dL (3.5-5.0); CALCIUM 9.3 mg/dL (8.8-10.2); POTASSIUM 4.1 mmol/L (3.5-5.1); TOTAL BILIRUBIN 0.19 mg/dL (0.20-1.00); TOTAL PROTEIN 6.5 g/dL (6.3-8.3)
[2017-02-17] MEDS: TOPROL XL PO SCH ×2 (08:58→20:46)
[2017-02-17] MEDS: NORVASC PO SCH (08:58)
[2017-02-17] MEDS: NEPHROCAPS PO SCH (08:58)
[2017-02-17] MEDS: LASIX PO SCH (08:58)
[2017-02-17] MEDS: VITAMIN D PO SCH (09:14)
--- NOTE | 2017-02-17 09:29 | PROGRESS NOTE ---
DATE: 02/17/2017 SUBJECTIVE: Ms. Hobson is doing better. She denied any chest pain, unusual shortness of breath. Oral intake is fair. The patient is ambulating better. No nausea or vomiting. No diarrhea. PHYSICAL EXAMINATION: Vital Signs: Her vital signs noted. Neck: Supple. No JVD. Lungs: Bibasilar crepitations, occasional wheezing. CVS: S1 and S2 heard. A 2/6 systolic murmur at the apex. Abdomen: Soft, globular. Bowel sounds present. DIE REPAIRER TRIMMER DIES: Alert, awake. Able to move all 4 limbs. LAB DATA: Done this morning, reviewed. PROBLEM LIST: 1. Recurrent pulmonary edema. 2. Chest pain. 3. Positive cardiac isoenzymes. The patient is scheduled to have myocardial perfusion study tomorrow. 4. End-stage renal disease, on hemodialysis. 5. Chronic obstructive pulmonary disease. PLAN: Overall, patient is doing better. We will continue current treatment and close observation. Overall plan discussed with the patient and she is in agreement.
--- NOTE | 2017-02-17 15:56 | Diag Imaging Result Document ---
PROCEDURE NAME: CHEST-2 VIEWS - 02/17/2017 PA AND LATERAL RADIOGRAPH OF THE CHEST: COMPARISON: 02/12/2017. FINDINGS: There has been interval significant improvement of pulmonary edema and pulmonary venous congestion to essential resolution. The bilateral pleural effusions have also decreased significantly in size. There are still trace effusions layering at the posterior costophrenic angles. No new consolidations are identified. Cardiac silhouette is unremarkable. IMPRESSION: Interval significant improvement of pulmonary edema.
[2017-02-17] MEDS: REMERON PO SCH (20:46)
[2017-02-17] MEDS: KLONOPIN PO PRN (20:47)
[2017-02-18] MEDS: CARAFATE LIQUID PO SCH ×4 (00:05→18:18)
[2017-02-18] MEDS: DUONEB (A & A) INH SCH ×5 (03:26→19:15)
[2017-02-18] MEDS: REGLAN PO SCH ×4 (06:59→20:53)
[2017-02-18] MEDS: CATAPRES PO SCH ×3 (06:59→20:54)
[2017-02-18] MEDS: PRILOSEC PO SCH (06:59)
[2017-02-18 07:23] LABS: CALCIUM 8.8 mg/dL (8.8-10.2); POTASSIUM 4.1 mmol/L (3.5-5.1)
--- NOTE | 2017-02-18 07:26 | PROGRESS NOTE ---
DATE: 02/18/2017 SUBJECTIVE: Ms. Hobson is doing better. She denied any chest pain or palpitations. No fever or chills. The patient is ambulating well. Her chest x-ray done yesterday did show improvement in pulmonary edema. The patient is scheduled to have a myocardial perfusion study today. PHYSICAL EXAMINATION: Vital Signs: Her vital signs reviewed. Neck: Supple. No JVD. Lungs: Bibasilar crepitations. Heart: S1 and S2 heard. Abdomen: Soft, globular. Bowel sounds present. Extremities: No cyanosis, clubbing. No acute DVT. OFFSET PRESS OPERATOR APPRENTICE: Alert, awake. Able to move all 4 limbs. LABORATORY DATA: Blood work done yesterday, hemoglobin was 11, hematocrit 37, platelet count 238,000, WBC count 7.08. Electrolytes: BUN was 49, creatinine 4.5. ASSESSMENT AND PLAN: Overall, patient is doing better. She is scheduled to have myocardial perfusion scan today. If stress test negative, I am planning to discharge patient to rehab today. Her problems include pulmonary edema, chest pain, end-stage renal disease, hypertension, chronic obstructive pulmonary disease. Lab and medication noted. Overall plan discussed with the patient. She is in agreement.
[2017-02-18] MEDS ORDERED: LEXISCAN ONE (08:21)
[2017-02-18] MEDS ORDERED: AMINOPHYLLINE ONE (08:47)
--- NOTE | 2017-02-18 10:03 | PROGRESS NOTE ---
DATE: 02/18/2017 SUBJECTIVE: Ms. Hobson did well over the weekend. She had dialysis on Saturday and apparently had no issues. She has not had any chest pain in the interim. PHYSICAL EXAMINATION: Vital signs: She is afebrile. Heart rate is 79, blood pressure 136/66. General: In no acute distress. Cardiovascular: She sounds to be in a regular rate and rhythm. She has a soft 1 to 2/6 systolic murmur. No lower extremity edema. Chest: Clear to auscultation bilaterally. No increased work of breathing. Abdomen: Soft, nontender. PERTINENT DATA: Sodium 134, potassium 4.1, BUN 72, creatinine 6.7. ASSESSMENT: 1. End-stage renal disease. 2. Elevated troponin. PLAN: Patient is proceeding with nuclear scanning today and if this is acceptable she may be discharged home. We will follow up on the results of this.
--- NOTE | 2017-02-18 10:04 | PROGRESS NOTE ---
DATE: 02/18/2017 SUBJECTIVE: Ms. Hobson is sitting up in bed. She denies any chest pain. No increased work of breathing. She is currently on a breathing treatment. OBJECTIVE: Vital Signs: Her most recent vital signs, her temperature is 97.6 degrees, blood pressure 136/66, heart rate 79, respirations 16. She is on 3 L nasal cannula. Last recorded saturation is 100%. She has had 902 in. She has had 0 recorded out with 3.1 L recorded yesterday from dialysis on Saturday. Labs: Her most recent labs, her sodium is 134, potassium 4.1, chloride is 94, CO2 16, BUN 72, creatinine 6.7, glucose 69, her anion gap is 24, calcium 8.8, phosphorus 5.8, albumin of 3. White count 7.08, hemoglobin 11.1, hematocrit 37, with a platelet count of 238,000. Patient had a chest x-ray yesterday indicating improvement of pulmonary edema. Physical Examination: General: This is a 57-year-old, white female. She is in no acute distress. Skin: Warm and dry. HEENT: Normocephalic, atraumatic. Conjunctivae pink. She has MEENAKSHI. Mucous membranes moist. Neck: Supple. Trachea midline. No JVD. Cardiovascular: Regular rate and rhythm. She is without murmur or gallop. Lungs: She has coarse breath sounds, right greater than left. She remains on O2. Equal excursion. Abdomen: Round , soft, nontender. Positive bowel sounds. Genitourinary: Not inspected. Minimal void with dialysis assist. Extremities: Have no edema. No clubbing or cyanosis. Neurological: Alert and oriented x3. ASSESSMENT AND PLAN: 1. End-stage renal disease. Patient is due for her routine dialysis treatment in the morning. Otherwise, if discharged, she is to go to her outpatient prescription. 2. Fluid volume overload with congestive heart failure. Chest x-ray shows improvement. 3. Electrolytes and acid-base balance. These are stable. 4. Anemia. Patient was given erythropoietin. We will continue to monitor. This remains stable. I would to thank you for allowing us to follow with this patient. Seen, data reviewed, discussed with Mick Bowman on 02/18/17. I agree with the above assessment and plan of care. rg Dictated by MONICA Pereyra for Onesimo Mustafa MD [facility]
[2017-02-18] MEDS: NEPHROCAPS PO SCH (10:58)
[2017-02-18] MEDS: TOPROL XL PO SCH ×2 (10:58→20:54)
[2017-02-18] MEDS: LASIX PO SCH (10:58)
[2017-02-18] MEDS: VITAMIN D PO SCH (10:58)
[2017-02-18] MEDS: NORVASC PO SCH (10:59)
[2017-02-18] MEDS: TYLENOL PO PRN (13:14)
[2017-02-18] MEDS: KLONOPIN PO PRN (20:53)
[2017-02-18] MEDS: REMERON PO SCH (20:53)
[2017-02-19] MEDS: CARAFATE LIQUID PO SCH ×3 (00:46→11:00)
[2017-02-19] MEDS: CATAPRES PO SCH ×2 (06:30→14:13)
[2017-02-19] MEDS: TYLENOL PO PRN (06:30)
[2017-02-19] MEDS: REGLAN PO SCH ×2 (06:30→11:00)
[2017-02-19] MEDS: PRILOSEC PO SCH (06:30)
[2017-02-19] MEDS: LEVAQUIN 500 MG/D5W 100 ML IV SCH (06:31)
[2017-02-19 06:39] LABS: ALBUMIN 3.8 g/dL (3.5-5.0); CALCIUM 8.5 mg/dL (8.8-10.2)
--- NOTE | 2017-02-19 06:47 | Diag Imaging Result Document ---
PROCEDURE NAME: MYOCARDIAL PERF SCAN, STR/REST - 02/18/2017 SUMMARY: The patient was administered 11.6 millicuries of technetium-99m sestamibi after which resting cardiac images were obtained. The patient was subsequently stressed using a Lexiscan protocol. Following the administration of Lexiscan, the heart rate increased from 82 beats per minute to 100 beats per minute while the blood pressure went from 140/67 to 138/67. With Lexiscan, the patient denied chest discomfort. Following the administration of Lexiscan, the patient was administered 31.4 millicuries of technetium-99m sestamibi after which gated stress cardiac images were obtained. Following the administration of radiopharmaceutical, the patient was also administered aminophylline 125 mg intravenously because of nausea. Baseline ECG demonstrates sinus rhythm, minimal voltage criteria for left ventricular hypertrophy, and nonspecific ST and T-wave abnormality. Following the administration of Lexiscan, baseline ST- depression in the inferior and lateral precordial leads became a little more prominent with approximately [address]-segment depression in the inferior and to a lesser extent the lateral precordial leads. SPECT images were reconstructed in the short, horizontal, and vertical long axes. Review of these images demonstrated mildly diminished activity in the mid anterior wall and stress images which appeared similar on resting images. There was also diminished activity in the inferolateral region in the left ventricle on stress images which appears unchanged on resting images. No significant reversibility is evident. Gated images demonstrate a calculated left ventricular ejection fraction of 56% with symmetrical wall motion/thickening. CONCLUSIONS: 1. Adequate response to Lexiscan. 2. Clinically negative for chest pain. 3. Electrocardiographically nondiagnostic due to baseline ST and T-wave abnormality. 4. Lexiscan sestamibi images demonstrate fixed, mildly diminished activity in the mid anterior wall and fixed, diminished activity in the inferolateral region of the left ventricle and stress images, both with corresponding preserved regional wall motion and more consistent with soft tissue attenuation. There is no convincing scintigraphic evidence of inducible myocardial ischemia. Normal left ventricular systolic function demonstrated.
[2017-02-19] MEDS ORDERED: HEPARIN IV PRN (07:02)
[2017-02-19] MEDS ORDERED: NS 2,000 ML MISC PRN (07:02)
[2017-02-19] MEDS ORDERED: TIGHT: 0.2 ML/HR MISC PRN (07:02)
[2017-02-19] MEDS: DUONEB (A & A) INH SCH (07:33)
[2017-02-19] MEDS: KLONOPIN PO PRN (08:19)
[2017-02-19 09:44] VITALS: BP 134/65
[2017-02-19] MEDS ORDERED: NS 2,000 ML ONE (10:06)
--- NOTE | 2017-02-19 10:15 | DISCHARGE SUMMARY ---
ADMISSION DATE: 02/13/2017 DISCHARGE DATE: FINAL DISCHARGE DIAGNOSES: 1. Pulmonary edema. 2. Abnormal cardiac isoenzymes. 3. End-stage renal disease. 4. Chronic obstructive pulmonary disease. 5. Hypertension. 6. Gastritis and reflux disease. 7. Hyperlipidemia. 8. Situational depression. 9. Gastroparesis. 10. History of congestive heart failure. HISTORY OF PRESENT ILLNESS AND HOSPITAL COURSE: Ms. Hobson is a 57-year-old, white, female patient admitted with shortness of breath, respiratory distress. The patient was hypoxemic. Patient had dialysis on the day prior to admission. The patient also had vague chest pain. Evaluated in the ER. Chest x-ray did reveal pulmonary edema. The patient was admitted for further care. Her troponin level was higher than usual. Cardiology consult obtained. The patient underwent hemodialysis. Her clinical condition stabilized and improved. We treated her with pulmonary toilet, symptomatic treatment, IV antibiotics. Her hospital course and discharge delayed because of weekend, they were not able to do a stress test. The patient had stress test done yesterday but report was not ready until this morning, which also prolonged 1 day discharge. Her stress test results reviewed, which were negative for reversible ischemia. Overall, the patient is doing better. Shortness of breath improved. No chest pain. Oral intake is fair. No unusual cough or expectoration. No fever or chills. PHYSICAL EXAMINATION: Vital Signs: Her vital signs reviewed. Neck: Supple. No JVD. Lungs: Bibasilar crepitation. CVS: S1 and S2 heard. A 2/6 systolic murmur at the apex. Abdomen: Soft, globular. Bowel sounds present. FARMER GENERAL: Alert, awake. Able to move all 4 limbs. LAB DATA: Revealed last hemoglobin 11.1, hematocrit 37, WBC count 7.08, platelet count 238,000. Electrolytes done today, potassium 4, BUN 94, creatinine 8.6. The patient is due for dialysis today. Her proBNP was more than 35,000. Magnesium level was 1.7. Myocardial perfusion scan negative for reversible ischemia. Chest x-ray done on February 17 did show interval significant improvement in pulmonary edema. PLAN: Overall, patient received maximum benefit of hospitalization. I am planning to discharge her home today after dialysis. She will go to rehab. Discharge orders as per separate sheet. Overall discharge plan discussed with the patient. She is in agreement.
--- NOTE | 2017-02-19 12:19 | PROGRESS NOTE ---
DATE: 02/19/2017 SUBJECTIVE: Ms. Hobson is resting quietly. She states that she is breathing well. She is on O2. She is lying flat. LABORATORIES: This a.m., sodium 140, potassium 4, chloride 95, CO2 of 18, BUN 94, creatinine 8.6, glucose 82. Her anion gap is 27, calcium 8.5, phosphorus 8, albumin 3.8. Blood cultures are negative after 5 days. PHYSICAL EXAMINATION: Vital Signs: Her most recent vital signs are temperature 97.9 degrees, blood pressure 143/67, heart rate 83, respirations 16. She is on 2L nasal cannula. Last recorded saturation 96%. She has had 480 in. She has had zero out, with need for dialysis. General: This is a 57-year-old white female. She is resting quietly in bed. She is in no acute distress. Skin: Warm and dry. HEENT: Normocephalic, atraumatic. Conjunctivae pink. She has MEENAKSHI. Mucous membranes are moist. Neck: Supple. Trachea midline. No JVD. Cardiovascular: Regular rate and rhythm. She is without murmur or gallop. Lungs: Coarse breath sounds bilateral, right greater than left, with faint crackle to the right posterior base. She remains on O2. Equal excursion. Abdomen: Round, soft, nontender. Positive bowel sounds. Genitourinary: Not inspected. Minimal voids with dialysis assist. Integumentary: No rashes or lesions evident. Extremities: No edema. No clubbing or cyanosis. Neurological: Alert and oriented x3. ASSESSMENT AND PLAN: 1. End-stage renal disease. Patient is due for her routine dialysis treatment today. We will place her on a 2 K bath. She is to dialyze for 3-1/2 hours. We will attempt to pull her to her last dry weight. 2. Electrolytes. These are stable. 3. Fluid volume overload with congestive heart failure. Chest x-ray continues to show improvement. 4. Acid-base balance and anemia. These remain stable. I would to thank you for allowing us to follow with this patient. Seen, data reviewed, discussed with Mick Bowman on 02/19/17. I agree with the above assessment and plan of care. rg Dictated by MONICA Pereyra for Onesimo Mustafa MD [facility]
== END 2017-02-19 15:27 | DRG 291 ==
LOC: EDBD → ED 22:49 → EDIPHOLD 02-13 04:02 → 4N 02-13 14:29 → DIRADM 02-14 14:55 → 4N 02-14 14:59
PROVIDERS: ADMIT Internal Medicine; ATTEND Internal Medicine
PROC: 5A1D60Z (ICD-10-PCS; principal; 2017-02-13)
DX: I13.2 Hypertensive heart and chronic kidney disease with heart failure and with stage 5 chronic kidney disease, or end stage renal disease (principal); J96.01 Acute respiratory failure with hypoxia; J18.9 Pneumonia, unspecified organism; N18.6 End stage renal disease; E87.2 Acidosis; J44.0 Chronic obstructive pulmonary disease with (acute) lower respiratory infection; K31.84 Gastroparesis; Z99.81 Dependence on supplemental oxygen; I50.23 Acute on chronic systolic (congestive) heart failure; J44.1 Chronic obstructive pulmonary disease with (acute) exacerbation; E78.5 Hyperlipidemia, unspecified; K29.70 Gastritis, unspecified, without bleeding; D63.1 Anemia in chronic kidney disease; F17.210 Nicotine dependence, cigarettes, uncomplicated; E87.6 Hypokalemia; F43.21 Adjustment disorder with depressed mood; K21.9 Gastro-esophageal reflux disease without esophagitis; R74.8 Abnormal levels of other serum enzymes; Z99.2 Dependence on renal dialysis; Z79.899 Other long term (current) drug therapy; Z82.49 Family history of ischemic heart disease and other diseases of the circulatory system
CPT/HCPCS: 51702; 71010; 71020; 78452; 80053; 80069; 82550; 82805; 82948; 83036; 83735; 83880; 84100; 84484; 85025; 85610; 85730; 87040; 90732; 93005; 93017; 94640; 94761; 96365; 96366; 96367; 96375; 96376; A9500; J0280; J0696; J0885; J1170; J1644; J1815; J1940; J2405; J2920; J2930; J7030; J0820